=== PATIENT | female | born 1935 | race Caucasian/White ===

== ENCOUNTER 2016-09-21 13:08 | Inpatient (IN) ==
[2016-09-21] MEDS ORDERED: HYDROmorphone 2 MG/1 ML VIAL IV PRN (14:18)
[2016-09-21 14:51] LABS: Basophils % 0.1 % (0.0-0.8); Eosinophils % 0.1 % (0.00-10.9); Hematocrit 41.9 VOL% (35.7-47.0); Hemoglobin 13.8 GM/DL (12.0-16.0); Immature Granulocytes % 0.7 %; Immature Granulocytes Absolute 0.12 #; Lymphocytes % 11.2 % (21.3-54.2); Mean Corpuscular HGB Conc 32.9 GM/DL (32-36); Mean Corpuscular Hemoglobin 32 PG (27-34); Mean Corpuscular Volume 96.8 FL (87-102); Mean Platelet Volume 10.1 FL (9.6-12.0); Monocytes # 1.8 10*3/uL (0.11-0.8); Monocytes % 9.9 % (1.7-12.7); Platelet Count 240 T/CUMM (130-400); Red Blood Count 4.33 MC/CUMM (3.8-5.5); Red Cell Distribution Width 15.1 % (9.3-17.3)
--- NOTE | 2016-09-21 15:10 | Hospitalist History & Physical ---
Assessment and Plan - Time spent with patient Time spent with patient: Greater than 30 minutes (1) Abdominal pain Status: Acute Assessment and plan: Viral gastroenteritis vs Ischemic colitis Admit to hospitalist services. Start IV fluids. Draw labs. CT abdomen/pelvis. Start IV antibiotics. Pain medications PRN for pain management. Continue home medications.Occult blood; WBC stool; Culture stool; Cdiff. Current Visit: Yes Qualifiers: Abdominal location: upper abdomen, unspecified Qualified Code(s): R10.10 - Upper abdominal pain, unspecified (2) Nausea & vomiting Status: Acute Assessment and plan: Admit. Start IV fluids and antibiotics. CT abdomen/pelvis. Pepcid. PRN nausea medications. Current Visit: Yes History of Present Illness Chief complaint: abdominal pain History of present illness: Ms. Mcfarlane is a very pleasant 81 year old white female presented to [facility] for direct admit to room 225 from Angelica Gallegos [employer] office. Patient presented to Angelica Gallegos's office today for c/o nausea, vomiting and diarrhea since Wednesday around 2 p.m. Patient denies ever having this abdominal pain and complaint before. She states that she has not been able to keep anything down since Wednesday but today does seem a little better but still very nauseated or "quizzy" feeling. She denies fever, chills. She denies any blood in vomiting and no blood in stool. Patient medical history: hypertension, AFib , stroke (no deficits except a change in her voice). 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 Family History: Mother: Hypertension; Father: hypertension; Father: cancer (brain). Social history: smoking: none; alcohol: none; illicit drugs: none. Allergic to PCN, codiene. (?BP medication she wasnt sure) Patient lives at home alone. Ambulates at home without any assistance but uses a cane occasionally when not at her home. Primary Care physician: Angelica Gallegos NP Cafeteria Helper: Natalie After discussing patient with Angelica Gallegos NP and Dr Claros, Hospitalist, it was in agreement to direct admit patient for further evaluation. Patient did not bring home medications with her but she will give the list to the nurses on the floor for entry into the system. Code Status: Full Code. Home Medications Medication Instructions Recorded Confirmed Type Allopurinol 300 mg PO BID 11/10/15 11/10/15 History Clopidogrel [Plavix] 75 mg PO DAILY 11/10/15 11/10/15 History Furosemide Tab [Lasix Tab] 40 mg PO BID DIURETIC 11/10/15 11/10/15 History Potassium Chloride 20 meq PO BID 11/10/15 11/10/15 History Spironolactone 25 mg PO DAILY 11/10/15 11/10/15 History raNITIdine HCl [Zantac] 300 mg PO DAILY 11/10/15 11/10/15 History Allergies Allergy/AdvReac Type Severity Reaction Status Date / Time codeine Allergy RASH Verified 11/10/15 10:56 Penicillins Allergy RASH Verified 11/10/15 10:56 Sulfa (Sulfonamide Allergy RASH Verified 11/10/15 10:56 Antibiotics) IV DYE Allergy ANAPHYLAXIS Uncoded 11/10/15 10:56 MULTIPLE ? BP MEDS Allergy Redness of Uncoded 11/10/15 10:56 Skin Medical,Surgical,& Family Hx - Medical History Cardio: History of: Cardiac Dysrhythmia (AFib on Plavix), Cerebrovascular Disease, Hypertension Neurology: History of: Cerebrovascular Accident (voice change (was unable to talk briefly after stroke) ) - Social History Smoking Status: Never smoker Review of systems: ROS completed and pertinent positives and negatives in HPI. Exam - Constitutional General appearance: over weight - Head Head exam: Present: normal inspection, normocephalic - Eye Eye exam: Present: EOMI Pupils: Present: LUPIS - Neck Neck exam: Present: normal inspection - Respiratory Respiratory exam: Present: clear to auscultation bilaterally - GI/Abdominal GI/Abdominal exam: Present: distended, hypoactive bowel sounds, tenderness ( very tender all over but more upper abdominal region ), soft - Extremities Exam Extremities exam: Present: normal inspection, full ROM. Absent: edema - Neurological Exam Neurological exam: Present: alert, oriented X3 - Psychiatric Psychiatric exam: Present: normal affect, normal mood - Skin Skin exam: Present: normal color, warm, dry Results - Labs CBC & BMP: 09/21/16 14:35 Lab Results: I have reviewed the past 24 hour labs - Diagnostic Findings Procedure: CT Abdomen and Pelvis: pending (ordered: patient is drinking contrast )
[2016-09-21 15:20] LABS: Magnesium 2.4 MG/DL (1.8-2.4); Osmolality,Calculated 266.5 MOS/KG (273-304); Potassium 4.2 MMOL/L (3.5-5.1); VLDL CHOLESTEROL 31.8 MG/DL
[2016-09-21 15:21] LABS: Risk Ratio 4.38
[2016-09-21] MEDS: metroNIDAZOLE INJ 500 MG in PREMIX 1 EACH IV SCH ×2 (15:30→23:28)
[2016-09-21] MEDS: SODIUM CHLORIDE 0.9% 1,000 ML IV SCH (15:31)
[2016-09-21 15:50] LABS: Apearance,Urine CLOUDY (Clear); Bilirubin,Urine Negative (Negative); Blood, Urine Small mg/dL (Negative); Glucose,Urine (UA) Negative (Negative); Ketones,Urine Negative (Negative); Mucus,Urine Occasional /LPF (Occasional); Nitrite,Urine Negative (Negative); Protein,Urine 100 MG/DL; RBC,Urine 9 /HPF (0-4); Squamous Epithelial Cell,Urine Moderate /HPF (0-10); Urine Specific Gravity 1.019 (1.001-1.035); Urine Urobilinogen < 2.0 EU/DL (0.2-1.0); WBC,Urine 73 /HPF (0-6)
[2016-09-21 15:51] LABS: Urine Color Yellow (Yellow)
[2016-09-21] MEDS ORDERED: LEVOFLOXACIN INJ 500 MG in PREMIX 1 EACH IV SCH (16:00)
--- NOTE | 2016-09-21 17:28 | CT Report ---
CT of the abdomen and pelvis without intravenous contrast. Oral contrast was administered. Axial images were obtained with sagittal and coronal reconstructions. No previous study. Indication: Generalized abdominal pain. The heart is mildly enlarged. There is coronary artery calcification. There is no pericardial or pleural effusion. There are areas of scarring and interstitial fibrosis within the lung bases. There is a medium-sized hiatal hernia. There is no free air noted within the peritoneal cavity. There is a small amount of free fluid around the liver. There is fatty infiltration of the liver. The gallbladder is distended and stranding densities are noted surrounding it. There is wall thickening noted. No calcific stones are seen within it. There is no intrahepatic or extrahepatic biliary ductal dilatation. The sanders of the duodenum show indistinctness, adjacent to the gallbladder. There is also inflammation noted adjacent to the head of the pancreas, probably secondary to the gallbladder pathology. The pancreas is not enlarged. The pancreatic duct is not dilated. There is no splenic enlargement. There is no adrenal enlargement. There is no right kidney. The left kidney is normal in size without hydronephrosis or focal lesion identified. There is heavy calcific plaque present within a normal caliber abdominal aorta. There is an umbilical hernia which contains only fat. The loops of small intestine are not dilated. The terminal ileum presents a normal appearance. The appendix has been removed. The colon is not dilated. There are diverticuli present within the descending colon. At the junction of the descending and sigmoid colon, there is wall thickening and adjacent fluid. There is mild free fluid in the pelvis and fluid along the right paracolic gutter. There is severe lordosis of the lumbar spine. There is a prominent grade 1 anterolisthesis of L5 on S1, with a left unilateral pars defect identified. Degenerative changes are noted throughout the lumbar levels. Impression: 1. Distended gallbladder with wall thickening and surrounding inflammation consistent with cholecystitis. 2. Findings at the junction of the sigmoid and descending colon, consistent with diverticulitis. 3. Small amount of free fluid in the abdomen, around the liver, and in the right paracolic gutter and pelvis. The findings were discussed with the patient's nurse on the floor. The CT exam was performed using one or more of the following dose reduction techniques: Automated exposure control, adjustment of the mA and/or kV according to patient size, or use of iterative reconstruction technique. PROCEDURE INTERPRETED AT [facility] DEPARTMENT OF RADIOLOGY Final Report Signed by: Dr. Jaimie Ward
[2016-09-21] MEDS: FAMOTIDINE 20 MG/2 ML VIAL IV SCH (20:34)
[2016-09-22] MEDS: ACETAMINOPHEN 325 MG TABLET PO PRN ×3 (00:58→22:21)
[2016-09-22] MEDS: SODIUM CHLORIDE 0.9% 1,000 ML IV SCH ×3 (03:52→22:11)
[2016-09-22] MEDS: metroNIDAZOLE INJ 500 MG in PREMIX 1 EACH IV SCH ×2 (06:09→16:40)
[2016-09-22 06:44] LABS: Basophils % 0.2 % (0.0-0.8); Eosinophils # 0.1 10*3/uL (0.0-0.87); Eosinophils % 0.6 % (0.00-10.9); Hematocrit 35.1 VOL% (35.7-47.0); Hemoglobin 11.7 GM/DL (12.0-16.0); Immature Granulocytes % 0.5 %; Immature Granulocytes Absolute 0.06 #; Lymphocytes # 1.8 10*3/uL (1.4-4.0); Lymphocytes % 14.6 % (21.3-54.2); Mean Corpuscular HGB Conc 33.3 GM/DL (32-36); Mean Corpuscular Hemoglobin 32 PG (27-34); Mean Corpuscular Volume 96.2 FL (87-102); Mean Platelet Volume 10.2 FL (9.6-12.0); Monocytes # 1.3 10*3/uL (0.11-0.8); Monocytes % 10.3 % (1.7-12.7); Neutrophils # 9.3 10*3/uL (1.4-7.4); Neutrophils % 73.8 % (38.7-73.9); Platelet Count 174 T/CUMM (130-400); Red Blood Count 3.65 MC/CUMM (3.8-5.5); White Blood Count 12.5 T/CUMM (4-12)
[2016-09-22 07:16] LABS: Calcium 8.4 MG/DL (8.5-10.1); Magnesium 2.2 MG/DL (1.8-2.4); Osmolality,Calculated 275.8 MOS/KG (273-304); Potassium 4.3 MMOL/L (3.5-5.1)
[2016-09-22] MEDS: FAMOTIDINE 20 MG/2 ML VIAL IV SCH ×2 (08:38→22:11)
[2016-09-22] MEDS: CLOPIDOGREL 75 MG TABLET PO SCH ×2 (08:38→11:18)
--- NOTE | 2016-09-22 10:52 | Hospitalist Progress Note ---
Assessment and Plan (1) Abdominal pain Status: Acute Assessment and plan: CT A/P with possibility of cholecystitis and or diverticulitis. Patient reports a history of gallbladder issues, her current pain pattern is not consistent with the origin being cholecystitis. Pain and leukocytosis are improving Continue abx Current Visit: Yes Qualifiers: Abdominal location: upper abdomen, unspecified Qualified Code(s): R10.10 - Upper abdominal pain, unspecified (2) Nausea & vomiting Status: Resolved Current Visit: Yes Hospitalist: Subjective Interval history: No acute events overnight. Still with abdominal pain which is located over entire abdomen. It is better today. She denies N/V. Does report some mild diarrhea. Exam - Constitutional Vitals: Period Temp Pulse Resp BP Sys/Hunter Pulse Ox Last 24 Hr 96.4 F-98.5 F 51-59 20-21 111-128/61-74 93-95 General appearance: over weight - Head Head exam: Present: normocephalic, atraumatic - Eye Eye exam: Present: EOMI Pupils: Present: LUPIS - ENT ENT exam: Present: normal exam - Neck Neck exam: Present: normal inspection - Respiratory Respiratory exam: Present: clear to auscultation bilaterally. Absent: wheezes - Cardiovascular Cardiovascular exam: Present: regular rate and rhythm - GI/Abdominal GI/Abdominal exam: Present: normal bowel sounds, tenderness, soft. Absent: rebound - Extremities Exam Extremities exam: Present: normal inspection - Back Exam Back exam: Present: normal inspection - Neurological Exam Neurological exam: Present: alert, oriented X3 - Psychiatric Psychiatric exam: Present: normal affect, normal mood - Skin Skin exam: Present: warm, intact Results - Labs CBC & BMP: 09/22/16 05:48 09/22/16 05:49
[2016-09-22] MEDS ORDERED: LEVOFLOXACIN INJ 750 MG in PREMIX 1 EACH IV SCH (21:00)
[2016-09-22] MEDS: ALLOPURINOL 300 MG TABLET PO SCH (22:12)
[2016-09-23] MEDS: metroNIDAZOLE INJ 500 MG in PREMIX 1 EACH IV SCH ×3 (00:37→16:24)
[2016-09-23 06:35] LABS: Basophils % 0.2 % (0.0-0.8); Eosinophils # 0.1 10*3/uL (0.0-0.87); Hematocrit 34.4 VOL% (35.7-47.0); Hemoglobin 11.4 GM/DL (12.0-16.0); Immature Granulocytes % 0.7 %; Immature Granulocytes Absolute 0.07 #; Lymphocytes # 1.6 10*3/uL (1.4-4.0); Lymphocytes % 15.5 % (21.3-54.2); Mean Corpuscular HGB Conc 33.1 GM/DL (32-36); Mean Corpuscular Hemoglobin 32 PG (27-34); Mean Corpuscular Volume 96.4 FL (87-102); Mean Platelet Volume 10.2 FL (9.6-12.0); Monocytes % 9.4 % (1.7-12.7); Neutrophils # 7.7 10*3/uL (1.4-7.4); Neutrophils % 73.2 % (38.7-73.9); Platelet Count 190 T/CUMM (130-400); Red Blood Count 3.57 MC/CUMM (3.8-5.5); Red Cell Distribution Width 14.7 % (9.3-17.3); White Blood Count 10.5 T/CUMM (4-12)
[2016-09-23 07:08] LABS: Calcium 8.5 MG/DL (8.5-10.1); Magnesium 2.3 MG/DL (1.8-2.4); Osmolality,Calculated 278.5 MOS/KG (273-304); Potassium 4.2 MMOL/L (3.5-5.1)
[2016-09-23] MEDS: SODIUM CHLORIDE 0.9% 1,000 ML IV SCH ×2 (08:00→17:12)
[2016-09-23] MEDS: CLOPIDOGREL 75 MG TABLET PO SCH (09:37)
[2016-09-23] MEDS: ALLOPURINOL 300 MG TABLET PO SCH ×2 (09:37→22:49)
[2016-09-23] MEDS: ACETAMINOPHEN 325 MG TABLET PO PRN (09:38)
[2016-09-23] MEDS: FAMOTIDINE 20 MG/2 ML VIAL IV SCH ×2 (09:41→22:50)
--- NOTE | 2016-09-23 11:33 | Hospitalist Progress Note ---
Assessment and Plan (1) Abdominal pain Status: Acute Assessment and plan: CT A/P with possibility of cholecystitis and or diverticulitis. Patient reports a history of gallbladder issues, her current pain pattern is not consistent with the origin being cholecystitis. Pain and leukocytosis are improving Continue abx Still with abdominal pain and diarrhea, although she does report feeling better Will consult GI to evaluate Current Visit: Yes Qualifiers: Abdominal location: upper abdomen, unspecified Qualified Code(s): R10.10 - Upper abdominal pain, unspecified (2) Nausea & vomiting Status: Resolved Current Visit: Yes Hospitalist: Subjective Interval history: No acute events overnight. She reports that she feels better. She still complains of all over abdominal pain, also still with diarrhea. Exam - Constitutional Vitals: Period Temp Pulse Resp BP Sys/Hunter Pulse Ox Last 24 Hr 96.6 F-97.9 F 48-65 18-20 117-148/66-80 93-98 General appearance: over weight - Head Head exam: Present: normocephalic, atraumatic - Eye Eye exam: Present: EOMI Pupils: Present: LUPIS - ENT ENT exam: Present: normal exam - Neck Neck exam: Present: normal inspection - Respiratory Respiratory exam: Present: clear to auscultation bilaterally. Absent: rhonchi, wheezes - Cardiovascular Cardiovascular exam: Present: regular rate and rhythm - GI/Abdominal GI/Abdominal exam: Present: normal bowel sounds, soft. Absent: tenderness, rebound - Extremities Exam Extremities exam: Present: normal inspection - Back Exam Back exam: Present: normal inspection - Neurological Exam Neurological exam: Present: alert, oriented X3 - Psychiatric Psychiatric exam: Present: normal affect, normal mood - Skin Skin exam: Present: warm, intact Results - Labs CBC & BMP: 09/23/16 05:21 09/23/16 05:22
--- NOTE | 2016-09-23 22:07 | Gastrointestinal Consult Note ---
Assessment and Plan (1) Diverticulitis of sigmoid colon Status: Acute Assessment and plan: This is the main reason for the patient's hospitalization with a white blood cell count of 18,000 now down to 10.5 K after treatment with Levaquin and metronidazole. She will need to be transitioned to oral antibiotics and then likely could be discharged potentially tomorrow if she is tolerating these. We will continue to follow white blood cell count until she is discharged. The patient does have a change in her colon in the sigmoid descending region that we need to rule out cancer in approximately a month afte the colon has had a chance to heal from its current infection. She has never had a colorectal screening up to this point in this 31 years overdue. She appears to be healthy enough to be able tolerate surgery if one was required as a result of the above evaluation. Will arrange for this for [address] if the patient is discharged. Current Visit: Yes (2) Chronic cholecystitis Status: Acute Assessment and plan: Patient states that she has had gallstones for the last 40 years and has never had her gallbladder taken out. It is clear that she has some chronic inflammation no as she is tender in the right upper quadrant with palpation and CT scanning shows stranding around the gallbladder with gallbladder wall thickening. This is essentially tantamount to a chronic cholecystitis and may be a cause for future episodes of abdominal pain particularly at the center on the right upper quadrant. If she has further problems as an outpatient will likely order a HIDA scan to see that she has a low ejection fraction and send her to see surgery for cholecystectomy. Current Visit: Yes (3) Abnormal CT scan, gastrointestinal tract Status: Acute Assessment and plan: This finding refers to the diverticulitis and chronic cholecystitis previously noted findings. Current Visit: Yes (4) Leukocytosis Status: Acute Assessment and plan: The patient does have elevation of white blood cell count previously at 18,000 while this could certainly be due to the diverticulitis this may have also been secondary to the chronic cholecystitis less likely and or the urinary tract infection with about 70 white blood cells per high-power field. Patient also states that she has had a history of kidney stones and is status post right kidney removal because of the stones in the past. She may be predisposed to urinary tract infections as a result. It is likely that levofloxacin will treat underlying kidney infection as well. I do not see a urine culture but if this occurs again in the future would consider getting this. Current Visit: Yes History of Present Illness History of present illness: Ms. Mcfarlane is a 81 year old female who was sent over from Angelica Gallegos's office over at [facility] on 09/21/16 for onset of 10 out of 10 abdominal pain mostly involving her left lower abdomen but also producing some slight pain in the right lower abdomen/periumbilical region, as well as about 4-5 bowel movements. Patient states that the pain was similar to a dull ache but very intense. The patient has had a history of gallstones in the past some 40 years ago as well as kidney stones in the past perhaps explaining why she has the elevation in her urinary tract white blood cells with 70 per high-power field on recent UA. Patient also had fat stranding in the right upper quadrant consistent with cholecystitis and does have some pain on physical examination in this region. This was not the pain that brought her into the hospital however. CT of the abdomen shows fat stranding in the descending sigmoid region but also fat stranding around a thickened gallbladder wall in addition. Stool studies were done for C. difficile and were negative for fecal white blood cells and enteric pathogens at 48 hours indicating this was not an infectious colitis but more likely a diverticulitis. After treatment with a combination of levofloxacin and metronidazole her white blood cell count has improved down from 18,000-->10, 500. She is not having any fevers and chills at this time and states that her pain is down to about a 2 out of 10 in intensity posttreatment. She is feeling pretty good right now and could potentially leave tomorrow provided she can tolerate oral intake. She has done well with her solid lunch but did not have much of an appetite for supper. She states that she does not eat that much in the afternoons. She has never had a colonoscopy in her life and there is no family history of colon cancer or polyps. She will likely need a colonoscopy down the road upon discharge in about a month, to rule out cancer at the site of presumed diverticulitis. Home Medications Medication Instructions Recorded Confirmed Type Allopurinol 300 mg PO BID 11/10/15 09/21/16 History Clopidogrel [Plavix] 75 mg PO DAILY 11/10/15 09/21/16 History Furosemide Tab [Lasix Tab] 40 mg PO BID DIURETIC 11/10/15 09/21/16 History Potassium Chloride 20 meq PO BID 11/10/15 09/21/16 History Spironolactone 25 mg PO DAILY 11/10/15 09/21/16 History raNITIdine HCl [Zantac] 300 mg PO DAILY 11/10/15 09/21/16 History Allergies Allergy/AdvReac Type Severity Reaction Status Date / Time codeine Allergy RASH Verified 11/10/15 10:56 Penicillins Allergy RASH Verified 11/10/15 10:56 Sulfa (Sulfonamide Allergy RASH Verified 11/10/15 10:56 Antibiotics) IV DYE Allergy ANAPHYLAXIS Uncoded 11/10/15 10:56 MULTIPLE ? BP MEDS Allergy Redness of Uncoded 11/10/15 10:56 Skin Medical,Surgical,& Family Hx - Medical History Cardio: History of: Cardiac Dysrhythmia (AFib on Plavix), Cerebrovascular Disease, Hypertension Neurology: History of: Cerebrovascular Accident (voice change (was unable to talk briefly after stroke) ) Genitourinary: History of: Kidney Stones - Surgical History Thoracic Surgeries: Surgical HX of;: Kidney (Renal Surgery), Nephrectomy (1968) Abdominal Surgeries: Surgical HX of: Appendectomy - Social History Smoking Status: Never smoker Frequency of Alcohol Use: None Type of Drug Use: None Review of systems: Constitutional: She admits to some fever, chills, and is positive for recent nausea, and vomiting Eyes: Denies dry eyes, and scleral icterus HENT: Denies headaches Cardiovascular: Denies acute chest pain and claudication Respiratory: Denies shortness of breath, wheezing, and difficulty breathing, denies cough Gastrointestinal: As noted in the HPI Genitourinary: Despite the elevated urinary white blood cell count she denies dysuria and hematuria Neurologic: Denies vision loss, and loss of sensation Musculoskeletal: She admits to some joint swelling, joint stiffness, and muscular weakness Psychiatric: Denies depression and tony symptoms Heme-Lymph: Denies easy bruising, lymph node enlargement or tenderness, night sweats, excessive bleeding Allergies-immunologic: Denies pruritus and rhinorrhea Exam - Constitutional Vitals: Period Temp Pulse Resp BP Sys/Hunter Pulse Ox Last 24 Hr 96.0 F-97.9 F 48-65 18-20 117-151/66-80 93-98 General appearance: no acute distress - Head Head exam: Present: normocephalic - Eye Eye exam: Present: EOMI Pupils: Present: LUPIS - ENT ENT exam: Present: normal exam - Respiratory Respiratory exam: Present: clear to auscultation bilaterally. Absent: rhonchi, stridor, wheezes - Cardiovascular Cardiovascular exam: Present: regular rate and rhythm - GI/Abdominal GI/Abdominal exam: Present: normal bowel sounds, tenderness (Patient does have some tenderness in the left lower abdomen but also in the right upper abdomen, given comparison of the 2 of these it seems like the latter is a worse on physical exam.), soft, other (Rectal exam showed good tone no external fissures or fistulas stool is present brown and guaiac negative). Absent: distended, guarding, rebound - Extremities Exam Extremities exam: Absent: edema - Neurological Exam Neurological exam: Present: alert, oriented X3 - Psychiatric Psychiatric exam: Present: normal affect, normal mood - Skin Skin exam: Present: warm Results - Labs CBC & BMP: 09/23/16 05:21 09/23/16 05:22
[2016-09-24] MEDS: metroNIDAZOLE INJ 500 MG in PREMIX 1 EACH IV SCH (00:44)
[2016-09-24] MEDS: ACETAMINOPHEN 325 MG TABLET PO PRN (00:44)
[2016-09-24] MEDS: SODIUM CHLORIDE 0.9% 1,000 ML IV SCH (00:44)
[2016-09-24] MEDS: ALLOPURINOL 300 MG TABLET PO SCH (08:46)
[2016-09-24] MEDS: CLOPIDOGREL 75 MG TABLET PO SCH (08:46)
[2016-09-24] MEDS ORDERED: LEVOFLOXACIN INJ 750 MG in PREMIX 1 EACH IV SCH (09:00)
[2016-09-24] MEDS ORDERED: LEVOFLOXACIN 500 MG TABLET PO SCH (09:00)
[2016-09-24] MEDS: FAMOTIDINE 20 MG/2 ML VIAL IV SCH (10:00)
--- NOTE | 2016-09-24 10:53 | Discharge Summary ---
<Vicky Rooneyda - Last Filed: 09/24/16 10:48> Hospital Course - Hospital Course Hospital Course: This is a very pleasant 81-year-old female that presented as a direct admission to [facility] from the internal medicine clinic. Patient has a medical history significant for: Gouty arthritis, hypertension, atrial fibrillation, cerebrovascular accident, and gastroesophageal reflux disease. The patient has a surgical history significant for appendectomy and right nephrectomy. The patient reported the onset of symptoms about 3 days prior to presentation. She reported that she had an onset of nausea,vomiting, and diarrhea at that time. In addition, the patient reported a decrease in appetite however denied any melena or hematochezia. The symptoms were prolonged and the patient decided to seek medical attention at her primary care physician office on the day of presentation. The patient was seen and assessed at the internal medicine clinic. The hospitalist group at [facility] was contacted regarding the direct admission of the patient for further evaluation. The patient was subsequently admitted to the hospitalist services as a direct admission for continuation of care. The patient was admitted. Intravenous fluid replacement, empiric antibiotics, protein pump inhibitors, and anti-emetics were initiated. Bowel rest with pain management was promoted at that time. The patient underwent CT abdomen and pelvis which noted a distended gallbladder with wall thickening and surrounding inflammation consistent with cholecystitis, findings at the junction of the sigmoid and descending colon were consistent with diverticulitis, and a small amount of free fluid was noted in the abdomen, around the liver, and in the right paracolic gutter and pelvis. Urinalysis was obtained which suggested urinary tract infection. A gastroenterology consultation was requested. The patient was evaluated; recommendations were made for possible HIDA scan in the outpatient setting if problems occur in the future. Patient has never had a colonoscopy so she will need one in a month once her current episode of diverticulitis resolves. Urine culture revealed no growth at 48 hours. Stool culture reported no enteric pathogens at 48 hours. The patient's condition gradually improved. Her vital signs are stable. She has not experienced any significant overnight events. The patient has been afebrile. Today, we feel that she is indeed appropriate for discharge to follow-up with her primary care physician and cotton stomper as indicated. Discharge Plan - Discharge Data Disposition: Disch To Home/Self Care - Discharge Medications New Levofloxacin Tab [Levaquin Tab] 500 mg PO DAILY #10 tablet metroNIDAZOLE TAB [Flagyl Cap/Tab] 500 mg PO Q8HR #20 tablet Continue Potassium Chloride 20 meq PO BID raNITIdine HCl [Zantac Tab] 300 mg PO DAILY Clopidogrel [Plavix] 75 mg PO DAILY Allopurinol 300 mg PO BID Discontinued Furosemide Tab [Lasix Tab] 40 mg PO BID DIURETIC Spironolactone 25 mg PO DAILY - Follow Up or Referral - Forms/Instructions Exam - Constitutional Vitals: Period Temp Pulse Resp BP Sys/Hunter Pulse Ox Last 24 Hr 96.0 F-97.9 F 48-73 18-20 110-151/64-84 95-97 Discharge Results Procedures and tests throughout hospitalization: Pending Orders 09/21/16 16:21 Occult Blood, Stool Routine Stool for WBCs Routine stool [C. Diff Toxins A & B] Routine DS: Provider Date of admission: 09/21/16 13:35 Primary care physician: Himanshu Navarro MD Attending physician on admission: Josse Claros MD Consults: 09/23/16 10:43 Consult to Physician [CONS] Routine Comment: abd pain, diarrhea, diverticulitis on ct Consulting Provider: Armani Hair Discharging clinician: Cielo Rooney CNP <Seth Kitchen - Last Filed: 09/24/16 11:36> Hospital Course - Time spent with patient Time with patient DS: Less than 30 minutes (28) Diagnosis - Discharge Diagnosis (1) Abdominal pain Status: Resolved (2) Nausea & vomiting Status: Resolved (3) Diverticulitis of sigmoid colon Status: Resolved (4) Chronic cholecystitis Status: Chronic (5) Leukocytosis Status: Resolved Discharge Plan - Discharge Data Condition at Discharge: Stable Discharge Diet: high fiber diet Activity: increase activity as tolerated Hygiene: no restrictions Weight Bearing at Discharge: weight bear as tolerated Contact your physician if you experience:: fever over 101, Nausea/Vomiting, pain uncontrolled by pain medications Exam - Constitutional General appearance: over weight - Head Head exam: Present: normocephalic, atraumatic - Eye Eye exam: Present: EOMI Pupils: Present: LUPIS - ENT ENT exam: Present: normal exam - Neck Neck exam: Present: normal inspection - Respiratory Respiratory exam: Present: clear to auscultation bilaterally. Absent: rhonchi, wheezes - Cardiovascular Cardiovascular exam: Present: regular rate and rhythm - GI/Abdominal GI/Abdominal exam: Present: normal bowel sounds, soft. Absent: tenderness, rebound - Extremities Exam Extremities exam: Present: normal inspection - Back Exam Back exam: Present: normal inspection - Neurological Exam Neurological exam: Present: alert, oriented X3 - Psychiatric Psychiatric exam: Present: normal affect, normal mood - Skin Skin exam: Present: warm, intact
[2016-09-24 12:08] VITALS: BP 146/84
[2016-09-24] MEDS ORDERED: metroNIDAZOLE 500 MG TABLET PO SCH (14:00)
== END 2016-09-24 14:35 | disposition home or self-care (01) | DRG 392 ==
LOC: SUATTDRO 13:35 → N.2E 13:35
PROVIDERS: ADMIT Internal Medicine; ATTEND Internal Medicine

== ENCOUNTER 2016-09-26 19:43 | Inpatient (IN) ==
[2016-09-26] MEDS ORDERED: MORPHINE 2 MG/1 ML SYRINGE IV STA (21:03)
[2016-09-26] MEDS ORDERED: ASPIRIN 325 MG TABLET PO STA (21:03)
[2016-09-26] MEDS ORDERED: ASPIRIN 325 MG TABLET ONE (21:35)
[2016-09-26] MEDS ORDERED: ONDANSETRON 4 MG/2 ML VIAL ONE (21:35)
[2016-09-26 21:36] LABS: Basophils % 0.2 % (0.0-0.8); Eosinophils # 0.2 10*3/uL (0.0-0.87); Eosinophils % 1.6 % (0.00-10.9); Hematocrit 35.2 VOL% (35.7-47.0); Hemoglobin 11.9 GM/DL (12.0-16.0); Immature Granulocytes % 0.9 %; Immature Granulocytes Absolute 0.09 #; Lymphocytes # 1.7 10*3/uL (1.4-4.0); Mean Corpuscular HGB Conc 33.8 GM/DL (32-36); Mean Corpuscular Hemoglobin 32 PG (27-34); Mean Corpuscular Volume 95.1 FL (87-102); Mean Platelet Volume 9.5 FL (9.6-12.0); Monocytes % 10.2 % (1.7-12.7); Neutrophils # 6.6 10*3/uL (1.4-7.4); Neutrophils % 69.1 % (38.7-73.9); Platelet Count 230 T/CUMM (130-400); Red Cell Distribution Width 14.8 % (9.3-17.3); White Blood Count 9.5 T/CUMM (4-12)
[2016-09-26 21:50] LABS: D-Dimer 3.7 MG/L FEU; INR 1.2; PT Patient Result 12.4 SECS; Partial Thromboplastin Time 30.5 SECS (0-40)
[2016-09-26 21:55] LABS: Calcium 9.7 MG/DL (8.5-10.1); Potassium 4.1 MMOL/L (3.5-5.1)
[2016-09-26] MEDS ORDERED: ONDANSETRON 4 MG/2 ML VIAL IV STA (22:50)
[2016-09-26] MEDS ORDERED: FUROSEMIDE 40 MG/4 ML VIAL IV STA (23:37)
[2016-09-27] MEDS ORDERED: FUROSEMIDE 100 MG/10 ML VIAL ONE (00:26)
--- NOTE | 2016-09-27 00:34 | Emergency Department Note ---
Ravi Edmonds Brittany, am scribing for, and in the presence of, Jaye Corado MD 21:08. Mickie Edmonds Leanne, MD, personally performed the services described in this documentation, ascribed by Jenny Rodrigues in my presence, and it is both accurate and complete . Arrival - Arrival Chief Complaint: Chest Pain Stated Complaint: CHEST PAINS ED Nursing Triage Note: Pt to triage with c/o chest pain that started this morning. Pt denies any sob and n/v. Pt does states the pain started on the right side and moved to the center of her chest and it feels like a sharp pains. Pt feet are noted to be swollen bilateral. Pt states she was discharged this past from the hospital. Mode of Arrival: Wheelchair Limitations: No Limitations Source: Patient, RN Notes Reviewed Time Seen by Provider: 09/26/16 20:27 - History of Present Illness HPI Narrative: Patient is a 81 y/o white female presenting to the ED with c/o chest pain which onset this morning at 0400. Patient reports that she was woken out of her sleep with this pain. She describes pain as sharp in quality, beginning in the right chest wall this morning but as the day progressed pain is now more in the mid- sternal chest. She has had some radiation of pain into the right shoulder. She denies any SOB, but does appear to be dyspneic on exam. Patient has has had some edema of bilateral lower extremities, but has not had any N/V or diaphoresis. Patient reports a history significant for superficial thrombosis to lower extremities but never DVT. She was recently DC' d from here on September 24 and states that she was instructed to discontinue taking Lasix. Patient states that she currently takes Plavix. Drapery Estimator is Dr. Estrada. Patient has no other complaint/pain. PMHx of HTN and CVA. Onset (ago): hour(s) (0400 this morning) Consistency: constant Severity: moderate Severity scale (1-10): 6 Quality: sharp Allergies/Adverse Reactions: Allergies Allergy/AdvReac Type Severity Reaction Status Date / Time codeine Allergy RASH Verified 09/26/16 19:56 Penicillins Allergy RASH Verified 09/26/16 19:56 Sulfa (Sulfonamide Allergy RASH Verified 09/26/16 19:56 Antibiotics) IV DYE Allergy ANAPHYLAXIS Uncoded 09/26/16 19:56 MULTIPLE ? BP MEDS Allergy Redness of Uncoded 09/26/16 19:56 Skin Home Medications: Home Medications Medication Instructions Recorded Confirmed Type Allopurinol 300 mg PO BID 11/10/15 09/26/16 History Clopidogrel [Plavix] 75 mg PO DAILY 11/10/15 09/26/16 History Potassium Chloride 20 meq PO BID 11/10/15 09/26/16 History raNITIdine HCl [Zantac Tab] 300 mg PO DAILY 11/10/15 09/26/16 History Levofloxacin Tab [Levaquin Tab] 500 mg PO DAILY #10 tablet 09/24/16 09/26/16 Rx metroNIDAZOLE TAB [Flagyl Cap/Tab] 500 mg PO Q8HR #20 tablet 09/24/16 09/26/16 Rx Review of System - Review of System 12 point system: reviewed and no additional remarkable complaints except as stated - Review of System Constitutional: Absent: chills, diaphoresis, fever Eyes: Absent: vision change Head/Ears/Nose/Throat: Absent: nasal drainage, sore throat Respiratory: Absent: respiratory distress Cardiovascular: Present: chest pain, edema Gastrointestinal: Absent: abdominal pain, nausea, vomiting, diarrhea, constipation Genitourinary female: Absent: dysuria, frequency, urgency Musculoskeletal: Present: arm pain. Absent: back pain, leg pain, neck pain Skin: Absent: rash Neurological: Absent: headache Psychiatric: Absent: anxiety, depression Medical,Surgical,& Family Hx - Medical History Cardio: History of: Cardiac Dysrhythmia (AFib on Plavix), Cerebrovascular Disease, Hypertension Neurology: History of: Cerebrovascular Accident (voice change (was unable to talk briefly after stroke) ) Genitourinary: History of: Kidney Stones - Surgical History Thoracic Surgeries: Surgical HX of;: Kidney (Renal Surgery), Nephrectomy (1968) Abdominal Surgeries: Surgical HX of: Appendectomy - Social History Smoking Status: Never smoker Frequency of Alcohol Use: None Type of Drug Use: None Exam Vital Signs: Vital Signs Temperature 98.4 F 09/26/16 19:51 Pulse Rate 56 L 09/26/16 19:51 Respiratory Rate 18 09/26/16 19:51 Blood Pressure 149/71 09/26/16 19:51 O2 Sat by Pulse Oximetry 94 L 09/26/16 19:51 - General General appearance: alert, in no apparent distress - Head Head exam: Present: atraumatic, normocephalic, normal inspection - Eye Eye exam: Present: normal appearance, PERRL, EOMI - ENT ENT exam: Present: normal exam, normal oropharynx - Neck Neck exam: Present: normal inspection, full ROM, trachea midline - Chest Chest inspection: Present: normal inspection, symmetric chest wall rise - Respiratory Respiratory exam: Present: normal lung sounds bilaterally, other (dyspneic ) - Cardiovascular Cardiovascular exam: Present: regular rate, normal rhythm, normal heart sounds - Abdominal Exam Abdominal exam: Present: soft, normal bowel sounds. Absent: tenderness - Extremities Exam Extremities exam: Present: pedal edema (+2 pitting edema bilaterally). Absent: normal inspection - Back Exam Back exam: Present: normal inspection - Neurological Exam Neurological exam: Present: alert, oriented X3, CN II-XII intact. Absent: motor sensory deficit - Psychiatric Psychiatric exam: Present: normal affect, normal mood - Skin Skin exam: Present: warm, dry Course Course Narrative: PE VS CHF. PT TAKEN OFF LASIX. BUT RECENTLY IN HOSPITAL FOR DIVERTICULITIS. SATS LOW IN 90S ON RA. CXR CONSISNTENT WITH CHF. LASIX GIVEN. WILL ADMIT FOR VQ SCAN AND DETERMINE IF PT NEEDS TO BE OFF LASIX THERAPY SINCE LAST D/C TOOK HER OFF OF IT. Results - Labs CBC & BMP: 09/26/16 21:29 09/26/16 21:29 Lab Results: I have reviewed the patients labs Labs: Laboratory Tests 09/26/16 09/26/16 09/26/16 21:29 21:29 21:29 WBC 9.5 RBC 3.70 L Hgb 11.9 L Hct 35.2 L Plt Count 230 D MPV 9.5 L Lymph % (Auto) 18.0 L Sherman # (Auto) 1.0 H Sodium 136 Potassium 4.1 Chloride 101 Carbon Dioxide 27 BUN 20 H Creatinine 1.30 H Glucose 101 Troponin I 0.022 Laboratory Tests 09/26/16 09/26/16 21:29 Unknown INR 1.2 PT Patient/Control Mix 12.4 D-Dimer, Quantitative 3.7 Circ Anticoag PTT 30.5 B-Natriuretic Peptide 181 H - EKG EKG results: interpreted by ERMD - Impressions nsr, rbbb, std IN v4-v6. Disposition Clinical Impression: Shortness of breath, Hypoxemia Case discussed with: patient Condition: Stable
[2016-09-27] MEDS ORDERED: MORPHINE 2 MG/1 ML SYRINGE IV PRN (00:45)
[2016-09-27] MEDS ORDERED: MAGNESIUM SULF RIDER 4 GM in PREMIX 1 EACH IV PRN (00:50)
[2016-09-27] MEDS ORDERED: MAGNESIUM SULF RIDER 2 GM in PREMIX 1 EACH IV PRN (00:50)
[2016-09-27] MEDS ORDERED: ALBUTEROL/IPRATROPIUM 3 ML NEB RESP TX PRN (00:52)
--- NOTE | 2016-09-27 01:10 | Hospitalist History & Physical ---
Assessment and Plan (1) Chest pain Status: Acute Current Visit: Yes (2) Shortness of breath Status: Acute Current Visit: Yes (3) Hypoxemia Status: Acute Assessment and plan: Patient needs to be admitted to our service. I will schedule her on Lasix. Her O2 sats improved on 2 L nasal cannula. She is not normally on O2. They were 88 on room air. Patient denies shortness of breath but appeared short of breath. I think it would be prudent to get a V/Q lung scan on patient in the morning. Going to give her full dose Lovenox. Since she sees Dr. martinez in clinical think it would be appropriate to have [facility] cardiology evaluate her as far as her home medications. Her Lasix and Spironolactone would not restarted upon recent discharge. The reason was not documented. Current Visit: Yes History of Present Illness Chief complaint: Chest pain History of present illness: Ms. Mcfarlane is a 81 year old female with past medical history significant for recent hospitalization for diverticulitis and cystitis returns back to the hospital [facility]. Patient also reports a history of hypertension and stroke. She says that she developed chest pain this morning. It was right sided and radiated to the left side. It was across her chest. She did take some Pepcid but there was no relief. When patient was discharged 2 days ago she had her Lasix and Spironolactone were held. She sees Dr. martinez is her maternal fetal physician. She denies any heart failure. But does report that she has had recent weight gain of approximately 16 pounds over the past couple weeks. Her BNP is elevated only at 181. But her O2 saturations on room air were 88%. In the workup done in the ER. She had a elevated d-dimer. Secondary to her having a significant allergy to IV dye she did not get a CT scan With contrast. I was consulted for admission. Her O2 sats improved fairly quickly on 2 L nasal cannula. Home Medications Medication Instructions Recorded Confirmed Type Allopurinol 300 mg PO BID 11/10/15 09/26/16 History Clopidogrel [Plavix] 75 mg PO DAILY 11/10/15 09/26/16 History Potassium Chloride 20 meq PO BID 11/10/15 09/26/16 History raNITIdine HCl [Zantac Tab] 300 mg PO DAILY 11/10/15 09/26/16 History Levofloxacin Tab [Levaquin Tab] 500 mg PO DAILY #10 tablet 09/24/16 09/26/16 Rx metroNIDAZOLE TAB [Flagyl Cap/Tab] 500 mg PO Q8HR #20 tablet 09/24/16 09/26/16 Rx Allergies Allergy/AdvReac Type Severity Reaction Status Date / Time codeine Allergy RASH Verified 09/26/16 19:56 Penicillins Allergy RASH Verified 09/26/16 19:56 Sulfa (Sulfonamide Allergy RASH Verified 09/26/16 19:56 Antibiotics) IV DYE Allergy ANAPHYLAXIS Uncoded 09/26/16 19:56 MULTIPLE ? BP MEDS Allergy Redness of Uncoded 09/26/16 19:56 Skin Medical,Surgical,& Family Hx - Medical History Cardio: History of: Cardiac Dysrhythmia (AFib on Plavix), Cerebrovascular Disease, Hypertension Neurology: History of: Cerebrovascular Accident (voice change (was unable to talk briefly after stroke) ) Genitourinary: History of: Kidney Stones - Surgical History Thoracic Surgeries: Surgical HX of;: Kidney (Renal Surgery), Nephrectomy (1968) Abdominal Surgeries: Surgical HX of: Appendectomy - Family History Family History: Reports;: Family Cancer, Family Diabetes, Additional Family History (COPD) - Social History Smoking Status: Never smoker Frequency of Alcohol Use: None Type of Drug Use: None 12 point system: reviewed and no additional remarkable complaints except as stated Exam - Constitutional Vitals: Period Temp Pulse Resp BP Sys/Hunter Pulse Ox Last 24 Hr 98.4 F 56 18 149/71 94 General appearance: normal weight - Head Head exam: Present: normal inspection - Eye Eye exam: Present: EOMI Pupils: Present: LUPIS - ENT ENT exam: Present: normal exam - Neck Neck exam: Present: normal inspection - Respiratory Respiratory exam: Present: clear to auscultation bilaterally - Cardiovascular Cardiovascular exam: Present: bradycardia - GI/Abdominal GI/Abdominal exam: Present: normal bowel sounds - Extremities Exam Extremities exam: Present: edema - Back Exam Back exam: Present: normal inspection - Neurological Exam Neurological exam: Present: alert, oriented X3 - Psychiatric Psychiatric exam: Present: normal affect, normal mood - Skin Skin exam: Present: normal color, warm Results - Labs CBC & BMP: 09/26/16 21:29 09/26/16 21:29
[2016-09-27 02:07] LABS: Risk Ratio 5.63; VLDL CHOLESTEROL 38.6 MG/DL
[2016-09-27] MEDS: ENOXAPARIN 100 MG/ML SYRINGE SUBCUT SCH ×2 (03:52→18:21)
[2016-09-27 04:50] LABS: Basophils % 0.2 % (0.0-0.8); Eosinophils # 0.2 10*3/uL (0.0-0.87); Hematocrit 37.4 VOL% (35.7-47.0); Hemoglobin 12.4 GM/DL (12.0-16.0); Immature Granulocytes % 1.2 %; Lymphocytes % 22.6 % (21.3-54.2); Mean Corpuscular HGB Conc 33.2 GM/DL (32-36); Mean Corpuscular Hemoglobin 32 PG (27-34); Mean Corpuscular Volume 95.4 FL (87-102); Mean Platelet Volume 9.8 FL (9.6-12.0); Monocytes # 0.9 10*3/uL (0.11-0.8); Monocytes % 10.3 % (1.7-12.7); Neutrophils # 5.5 10*3/uL (1.4-7.4); Neutrophils % 63.7 % (38.7-73.9); Platelet Count 259 T/CUMM (130-400); Red Blood Count 3.92 MC/CUMM (3.8-5.5); Red Cell Distribution Width 14.8 % (9.3-17.3); White Blood Count 8.7 T/CUMM (4-12)
--- NOTE | 2016-09-27 05:03 | EKG Report ---
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
[2016-09-27 05:16] LABS: Calcium 10.5 MG/DL (8.5-10.1); Osmolality,Calculated 277.7 MOS/KG (273-304); Potassium 4.7 MMOL/L (3.5-5.1)
[2016-09-27] MEDS: metroNIDAZOLE 500 MG TABLET PO SCH ×3 (06:30→21:13)
--- NOTE | 2016-09-27 07:24 | EKG Report ---
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
[2016-09-27] MEDS: POTASSIUM CHLORIDE 20 MEQ TABLET PO SCH ×3 (08:33→21:13)
--- NOTE | 2016-09-27 08:53 | XRay Report ---
Portable chest Date: 09/26/2016 Clinical history: Chest pain Comparison: 11/10/2015 Technique: Portable AP sitting chest Findings: The heart is enlarged with uncoiling of the aorta. Diffuse parenchymal findings are noted in the lower lung zones. Stable mediastinum and osseous structures. Impression: Cardiomegaly with findings which can be seen with mild CHF/pneumonitis. PROCEDURE INTERPRETED AT [facility] DEPARTMENT OF RADIOLOGY Final Report Signed by: Dr. Angelica Syed
--- NOTE | 2016-09-27 09:44 | Nuclear Medicine Report ---
Exam: Lung scan ventilation/perfusion Date: 09/27/2016 Comparison: Chest x-ray 09/26/2016 Reason: Elevated d-dimer with low O2 sats Technique: 40 mCi of technetium 99m DTPA aerosolized was inhaled with injection of 5 mCi of technetium 99m MAA . 6 view Ventilation and perfusion images of both lungs were acquired. Findings: Multiple ventilation defects are identified. Multiple bilateral ventilation defects are identified. The perfusion defects are less prominent than the ventilation defects. No unmatched defects are identified. Impression: Low probability lung scan. PROCEDURE INTERPRETED AT [facility] DEPARTMENT OF RADIOLOGY Final Report Signed by: Dr. Angelica Syed
[2016-09-27] MEDS: FUROSEMIDE 40 MG/4 ML VIAL IV SCH ×2 (09:56→15:57)
[2016-09-27] MEDS: LEVOFLOXACIN 500 MG TABLET PO SCH (09:57)
[2016-09-27] MEDS: FAMOTIDINE 20 MG TABLET PO SCH (09:57)
[2016-09-27] MEDS: CLOPIDOGREL 75 MG TABLET PO SCH (09:57)
[2016-09-27] MEDS: ASPIRIN CHEW 81 MG TABLET PO SCH (09:57)
[2016-09-27] MEDS: ALLOPURINOL 300 MG TABLET PO SCH ×2 (09:57→21:13)
--- NOTE | 2016-09-27 09:59 | Cardiology Consult Note ---
Assessment and Plan (1) Chest wall pain Status: Acute Assessment and plan: Her pain is noncardiac and certainly musculoskeletal in nature. Current Visit: Yes (2) Bradycardia Status: Acute Assessment and plan: This was sinus bradycardia. His one episode. Will monitor this. She is on medications to cause this. Current Visit: Yes (3) Nonsustained ventricular tachycardia Status: Acute Assessment and plan: She has one episode of nonsustained ventricular tachycardia that was asymptomatic. We will check an echocardiogram as well as magnesium level. Current Visit: Yes History of Present Illness - Data of Consult Patient: known to practice within the last 3 years Consult date: 09/27/16 Requesting Physician: Ruben Reid - Consult Narrative Reason for consult: Chest pain History of present illness: Ms. Mcfarlane is a 81 year old female who is been followed by Dr. Estrada previously. Patient has followed with him for having some vascular disease in the form of CVA and carotid disease as well as hypertension. She has had chest pain described as atypical in the past with normal cardiac perfusion study 2 years ago. She generally has done fairly well. The patient about 4 AM yesterday morning states that she had development of right sided chest pain that radiated to the mid chest around the chest wall. Pain persisted. She was seen in emergency room here without any acute EKG changes and cardiac enzymes have been unremarkable. The pain is exacerbated by deep breath motion or trying to lift herself up out of a chair without using her arm. She lays on her left side exacerbates the pain. She has not had this pain previously. She denies any trauma to her chest. Since admission she has had one episode of bradycardia and one episode of nonsustained ventricular tachycardia that was 14 beats. This is completely asymptomatic. Her potassium was okay but I do not see a magnesium but she is on magnesium protocol which I think she is standard orders. We will need to check a magnesium. We will also check echocardiogram. Need to continue to monitor her heart rhythm rates. I do not think from a chest pain standpoint we need to carry out further evaluation at this time. She was recently in the hospital with GI complaints and abdominal pain. CC: Josse Claros MD - Home Medications and Allergies Home Medications: Home Medications Medication Instructions Recorded Confirmed Type Allopurinol 300 mg PO BID 11/10/15 09/26/16 History Clopidogrel [Plavix] 75 mg PO DAILY 11/10/15 09/26/16 History Potassium Chloride 20 meq PO BID 11/10/15 09/26/16 History raNITIdine HCl [Zantac Tab] 300 mg PO DAILY 11/10/15 09/26/16 History Levofloxacin Tab [Levaquin Tab] 500 mg PO DAILY #10 tablet 09/24/16 09/26/16 Rx metroNIDAZOLE TAB [Flagyl Cap/Tab] 500 mg PO Q8HR #20 tablet 09/24/16 09/26/16 Rx Allergies/Adverse Reactions: Allergies Allergy/AdvReac Type Severity Reaction Status Date / Time codeine Allergy RASH Verified 09/26/16 19:56 Penicillins Allergy HIVES Verified 09/27/16 02:26 Sulfa (Sulfonamide Allergy RASH Verified 09/26/16 19:56 Antibiotics) IV DYE Allergy ANAPHYLAXIS Uncoded 09/26/16 19:56 MULTIPLE ? BP MEDS Allergy Redness of Uncoded 09/26/16 19:56 Skin Review of systems: Constitutional: Denies anorexia, chills, fatigue, fever, frequent falls, night sweats, weight gain, weight loss Eyes: Denies visual changes or loss of vision Ears: Denies decreased hearing, vertigo Nose, mouth and throat: Denies dysphagia, epistaxis, headaches, neck pain Neck: Denies thyromegaly or masses. No stiffness. Cardiovascular: as per HPI Respiratory: Denies cough, dyspnea, hemoptysis, dyspnea on exertion, wheezing, snoring Gastrointestinal: Denies abdominal pain, constipation, dyspepsia, dysphagia, hematemesis, hematochezia, melena, nausea, vomiting Genitourinary: Denies dysuria, hematuria, nocturia Musculoskeletal: Denies arthralgias, joint swelling, muscle weakness, myalgias Neurological: denies abnormal gait, abnormal speech, confusion, convulsions, frequent falls, headaches, memory loss, syncope Psychiatric: Denies anxiety, confusion, depression Endocrine: Denies cold intolerance, fatigue, heat intolerance Hematologic/Lymphatic: Denies easy bleeding, easy bruising Dermatologic: Denies Rash, itching, shingles Medical,Surgical,& Family Hx - Medical History Cardio: History of: Cerebrovascular Disease, Hypertension Neurology: History of: Cerebrovascular Accident (voice change (was unable to talk briefly after stroke) ) Rheumatology: History of;: Gout Genitourinary: History of: Kidney Stones - Surgical History Cardiac Surgeries: Patient Denies: Femoral-Popliteal Bypass Graft, Cardiac Catheterization, Cardiac Surgery, Carotid Endarterectomy, Internal Defibrillator, Vascular Access Devices Thoracic Surgeries: Surgical HX of;: Kidney (Renal Surgery), Nephrectomy (1969) Neurologic Surgeries: Patient denies: Neurologic Surgery HEENT Surgeries: Patient denies: Carotid Endarterectomy Abdominal Surgeries: Surgical HX of: Appendectomy Patient denies: Splenectomy Reproductive Surgeries: Patient denies;: Gynecologic Surgery - Family History Family History: Reports;: Family Cancer, Family Diabetes, Additional Family History (COPD) - Social History Smoking Status: Never smoker Frequency of Alcohol Use: None Type of Drug Use: None Physical Examination Vital Signs Temp Pulse Resp BP Pulse Ox 98.4 F 56 L 18 149/71 94 L 09/26/16 19:51 09/26/16 19:51 09/26/16 19:51 09/26/16 19:51 09/26/16 19:51 Exam: General appearance: Overweight, no acute distress, sitting on the side of the bed. Head exam: normal inspection, atraumatic Eye exam: Pupils are equal and reactive. EOMI. There is no trauma. Ear exam: Anatomically normal. Normal auditory acuity to conversation. Oral exam: No significant oral lesions. Neck exam: normal inspection no JVD. No carotid bruit. Trachea is in midline. Respiratory exam: clear to auscultation bilaterally posteriorly and anteriorly with good air movement. No rales, rhonchi or wheezes. Cardiovascular exam: regular rate and rhythm, no murmur or gallop or rub. No precordial lift. No bruits over the major arteries. Chest wall/torso: Anatomically normal. Tenderness to palpation along the right lateral chest that reproduces the pain which she complains of. This tenderness extends to the anterior right chest wall. Peripheral Pulses: 2+ throughout. GI/Abdominal exam: normal bowel sounds, soft and nontender, no abdominal bruits or pulsatile masses. Musculoskeletal/Extremities exam: normal inspection without edema or cyanosis. No deformities or trauma. Neurological exam: alert, oriented X3. There is no gross neurologic deficits. Psychiatric exam: normal affect, normal mood. Cognitive function is grossly intact. Skin exam: normal color, warm. No rashes or other skin lesions. Result/EKG - Labs CBC & BMP: 09/27/16 03:43 09/27/16 03:43 Lab Results: I have reviewed the past 24 hour labs Labs: Laboratory Results - last 24 hr 09/26/16 09/26/16 09/26/16 21:29 21:29 21:29 WBC 9.5 RBC 3.70 L Hgb 11.9 L Hct 35.2 L MCV 95.1 MCH 32 MCHC 33.8 RDW 14.8 Plt Count 230 D MPV 9.5 L Neut % (Auto) 69.1 Lymph % (Auto) 18.0 L Gonzales % (Auto) 10.2 Eos % (Auto) 1.6 Baso % (Auto) 0.2 Neut # (Auto) 6.6 Lymph # (Auto) 1.7 Gonzales # (Auto) 1.0 H Eos # (Auto) 0.2 Baso # (Auto) 0.0 Immature Gran % 0.9 Nucleated RBC % 0.0 Immature Gran # 0.09 Nucleated RBCs # 0.00 INR PT Patient/Control Mix D-Dimer, Quantitative Circ Anticoag PTT Sodium 136 Potassium 4.1 Chloride 101 Carbon Dioxide 27 Anion Gap 12.1 BUN 20 H Creatinine 1.30 H GFR Calculation 42 BUN/Creatinine Ratio 15.00 Glucose 101 Calculated Osmolality 274.0 Calcium 9.7 Troponin I B-Natriuretic Peptide 181 H Triglycerides Cholesterol LDL Cholesterol VLDL Cholesterol HDL Cholesterol Heart Disease Risk Ratio 09/26/16 09/26/16 09/27/16 21:29 Unknown 00:36 WBC RBC Hgb Hct MCV MCH MCHC RDW Plt Count MPV Neut % (Auto) Lymph % (Auto) Gonzales % (Auto) Eos % (Auto) Baso % (Auto) Neut # (Auto) Lymph # (Auto) Gonzales # (Auto) Eos # (Auto) Baso # (Auto) Immature Gran % Nucleated RBC % Immature Gran # Nucleated RBCs # INR 1.2 PT Patient/Control Mix 12.4 D-Dimer, Quantitative 3.7 Circ Anticoag PTT 30.5 Sodium Potassium Chloride Carbon Dioxide Anion Gap BUN Creatinine GFR Calculation BUN/Creatinine Ratio Glucose Calculated Osmolality Calcium Troponin I 0.022 B-Natriuretic Peptide Triglycerides 193 H Cholesterol 152 LDL Cholesterol 101.0 VLDL Cholesterol 38.6 HDL Cholesterol 27 L Heart Disease Risk Ratio 5.63 09/27/16 09/27/16 09/27/16 00:48 03:43 03:43 WBC 8.7 RBC 3.92 Hgb 12.4 Hct 37.4 MCV 95.4 MCH 32 MCHC 33.2 RDW 14.8 Plt Count 259 MPV 9.8 Neut % (Auto) 63.7 Lymph % (Auto) 22.6 Gonzales % (Auto) 10.3 Eos % (Auto) 2.0 Baso % (Auto) 0.2 Neut # (Auto) 5.5 Lymph # (Auto) 2.0 Gonzales # (Auto) 0.9 H Eos # (Auto) 0.2 Baso # (Auto) 0.0 Immature Gran % 1.2 Nucleated RBC % 0.0 Immature Gran # 0.10 Nucleated RBCs # 0.00 INR PT Patient/Control Mix D-Dimer, Quantitative Circ Anticoag PTT Sodium Potassium Chloride Carbon Dioxide Anion Gap BUN Creatinine GFR Calculation BUN/Creatinine Ratio Glucose Calculated Osmolality Calcium Troponin I 0.016 0.016 B-Natriuretic Peptide Triglycerides Cholesterol LDL Cholesterol VLDL Cholesterol HDL Cholesterol Heart Disease Risk Ratio 09/27/16 03:43 WBC RBC Hgb Hct MCV MCH MCHC RDW Plt Count MPV Neut % (Auto) Lymph % (Auto) Gonzales % (Auto) Eos % (Auto) Baso % (Auto) Neut # (Auto) Lymph # (Auto) Gonzales # (Auto) Eos # (Auto) Baso # (Auto) Immature Gran % Nucleated RBC % Immature Gran # Nucleated RBCs # INR PT Patient/Control Mix D-Dimer, Quantitative Circ Anticoag PTT Sodium 138 Potassium 4.7 Chloride 99 Carbon Dioxide 32 Anion Gap 11.7 BUN 21 H Creatinine 1.20 H GFR Calculation 46 BUN/Creatinine Ratio 17.00 Glucose 91 Calculated Osmolality 277.7 Calcium 10.5 H Troponin I B-Natriuretic Peptide Triglycerides Cholesterol LDL Cholesterol VLDL Cholesterol HDL Cholesterol Heart Disease Risk Ratio - Impressions Impressions: The patient's ECG really appears to be sinus rhythm with low voltage P waves. Patient's telemetry with episode of bradycardia as well as episode of ventricular tachycardia is noted.
[2016-09-27] MEDS: ACETAMINOPHEN 325 MG TABLET PO PRN ×2 (15:56→21:13)
[2016-09-28] MEDS: metroNIDAZOLE 500 MG TABLET PO SCH ×4 (06:12→23:26)
[2016-09-28] MEDS: ENOXAPARIN 100 MG/ML SYRINGE SUBCUT SCH (06:12)
--- NOTE | 2016-09-28 07:32 | EKG Report ---
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
[2016-09-28] MEDS: LEVOFLOXACIN 500 MG TABLET PO SCH (07:59)
[2016-09-28] MEDS: POTASSIUM CHLORIDE 20 MEQ TABLET PO SCH ×2 (08:00→20:04)
[2016-09-28] MEDS: ALLOPURINOL 300 MG TABLET PO SCH ×2 (08:00→20:04)
[2016-09-28] MEDS: FAMOTIDINE 20 MG TABLET PO SCH (08:00)
--- NOTE | 2016-09-28 08:46 | ECHO Report ---
Mandy Mcfarlane Exam Date: 09/27/2016 10:57 Referring Physician: Technologist: Genna Graham RDCS Age: 81 Ht (in): 62 Wt (lb): 196 Gender: F Exam Location: [facility] Echo Indications: Chest pain, unspecified, Bradycardia, unspecified, Shortness of breath, Nonsustained VT BP: 122 / 66 HR: 48 Rhythm: Other Technical Quality: Fair IMPRESSIONS 1. Left ventricle normal size systolic function ejection fraction of 55-60%. There is mild concentric left ventricular hypertrophy. 2. Right ventricle is normal size systolic function. 3. Moderately dilated right atrium and left atrium. 4. Mitral valve regurgitation. 5. Sclerotic aortic valve but without regurgitation or stenosis. 6. Tricuspid valve with mild to moderate regurgitation. 7. Mild elevated right-sided pressures. MEASUREMENTS (Male / Female) Normal Values 2D ECHO LV Diastolic Diameter PLAX 4.7 cm 4.2 - 5.9 / 3.9 - 5.3 cm LV Systolic Diameter PLAX 2.9 cm LV Fractional Shortening PLAX 38.5 % IVS Diastolic Thickness 1.1 cm 0.6 - 1.0 / 0.6 - 0.9 cm LVPW Diastolic Thickness 1.1 cm 0.6 - 1.0 / 0.6 - 0.9 cm RV Internal Dim ED PLAX 3.0 cm Aortic Root Diameter 3.2 cm LA Systolic Diameter LX 4.4 cm 3.0 - 4.0 / 2.7 - 3.8 cm DOPPLER TR Peak Velocity 326.0 cm/s TR Peak Gradient 42.5 mmHg FINDINGS Left Ventricle Normal left ventricular cavity size. Mild left ventricular hypertrophy. Left ventricular ejection fraction is estimated at 55-60 %. Right Ventricle The right ventricle is normal in size and function. Right Atrium Moderately increased right atrial size. Left Atrium Moderately increased left atrial size. Mitral Valve Morphologically normal mitral valve. Mild mitral valve regurgitation. Aortic Valve Tricusp structure with sclerosis without stenosis. There is no aortic regurgitation. Tricuspid Valve Morphologically normal tricuspid valve. [id number] tricuspid valve regurgitation. Tricuspid regurgitation velocities suggest a PAP of 48-53 mmHg. Pulmonic Valve Morphologically normal pulmonic valve. Trace pulmonary valve regurgitation. Pericardium Normal pericardium without effusion. Aorta Normal ascending aorta dimension. Ruben Parker MD (Electronically Signed) Final Date: 28 September 2016 08:45
[2016-09-28] MEDS: ENOXAPARIN 30 MG/0.3 ML SYRINGE SUBCUT SCH ×3 (10:01→23:26)
[2016-09-28] MEDS: FUROSEMIDE 40 MG/4 ML VIAL IV SCH (11:39)
[2016-09-28] MEDS: ACETAMINOPHEN 325 MG TABLET PO PRN (11:39)
[2016-09-28] MEDS ORDERED: KETOROLAC 15 MG/1 ML VIAL IV ONE (14:14)
--- NOTE | 2016-09-28 14:15 | Cardiology Progress Note ---
Missael Edmonds April, RN, am scribing for, and in the presence of, Champ Cornejo MD 14:10. Assessment and Plan - Time spent with patient Time spent with patient: Greater than 30 minutes (1) Bradycardia Status: Acute Assessment and plan: 1. Modest pleuritic atypical chest pain; this seems to be improving a bit. Consider continued PPI/H2 nader and Medrol Dosepak if this persists. I will give Toradol 50 mg IV 1. Acute coronary syndrome/angina is not suspected. 2. Normal ejection fraction noted on echocardiogram with moderately elevated PA pressure (approximately 50 mmHg) 3. RBBB with bradycardia; heart rates been in the 50s late morning and afternoon today. We will continue to monitor, though it does not seem to be symptomatic at this time. She is not on any medications that would slow her heart rate. Will check TSH; magnesium was normal. 4. Previous 14 beat run of nonsustained ventricular tachycardia. This has not recurred. No further workup for this as needed at this time. 5. Follow with Dr. martinez in approximately 2 weeks time. Current Visit: Yes (2) Chest wall pain Status: Acute Current Visit: Yes (3) Nonsustained ventricular tachycardia Status: Acute Current Visit: Yes Cardiology - PN: Subj Interval history: [employer] Receiving Clerk: Dr. Estrada SUMMARY: Ms. Mcfarlane is an 81-year-old female who is routinely followed by Dr. Estrada with a history of CVA, carotid disease, and hypertension. She reportedly had a normal cardiac perfusion study done 2 years ago. She developed right-sided chest pain on September 26. She was in the emergency department for any acute EKG changes, cardiac enzymes are unremarkable. The pain was aggravated by taking a deep breath or lying on her left side. She denies any chest trauma. She also had an episode of bradycardia and a 14 beat episode of nonsustained ventricular tachycardia. Chest x-ray showed cardiomegaly with findings consistent with mild CHF/pneumonitis. She has been started on Levaquin 500 mg p.o. daily and Lasix 40 mg IV daily. VQ lung scan was negative for PE. September 28, 2016: Ms. Mcfarlane is seen sitting up in chair in no acute distress. She reports she continues to have right-sided chest pain when she takes a deep breath or when she lies on her left side. She states the pain is not as bad as it was on admission. monitor car operator currently shows sinus rhythm with heart rates in the 60s. There are no strip scanned in to reflect this, the electronic device monitor states that she did have some bradycardia during the night with rates in the 40s. Electrolytes have been within normal range. She denies any shortness of breath, palpitations, or dizziness. Exam (Progress Note) - Constitutional Vitals: Period Temp Pulse Resp BP Sys/Hunter Pulse Ox Last 24 Hr 96.5 F-98.5 F 49-63 14-20 94-139/45-72 90-100 General appearance: no acute distress, over weight - Head Head exam: Absent: abrasion, hematoma - Eye Eye exam: Absent: periorbital swelling, laceration to eyelids - Respiratory Respiratory exam: Present: clear to auscultation bilaterally. Absent: accessory muscle use, chest wall tenderness - Cardiovascular Cardiovascular exam: Present: bradycardia, regular rate and rhythm, tachycardia - GI/Abdominal GI/Abdominal exam: Present: normal bowel sounds, soft. Absent: distended, tenderness - Extremities Exam Extremities exam: Present: edema (Trace to bilateral lower extremities) - Neurological Exam Neurological exam: Present: alert, oriented X3 - Psychiatric Psychiatric exam: Present: normal affect, normal mood - Skin Skin exam: Present: warm, dry Result/EKG - Labs CBC & BMP: 09/27/16 03:43 09/27/16 03:43 Lab Results: I have reviewed the past 24 hour labs Labs: Laboratory Results - last 24 hr 09/27/16 10:39 Magnesium 1.9 - Diagnostic Findings Procedure: Chest x-ray: report reviewed by me - EKG EKG results: interpreted by me EKG shows: sinus rhythm Chantal Edmonds Randall Scott, MD, personally performed the services described in this documentation, ascribed by Goldie Canas RN in my presence, and it is both accurate and complete 415 .
[2016-09-28] MEDS: CLOPIDOGREL 75 MG TABLET PO SCH (14:30)
[2016-09-28] MEDS: ASPIRIN CHEW 81 MG TABLET PO SCH (14:30)
--- NOTE | 2016-09-28 15:14 | Sleep Medicine Consult ---
Assessment and Plan (1) Unspecified sleep apnea Status: Acute Assessment and plan: With her history of pulmonary hypertension and prior stroke, think she needs sleep eval. Will set up outpatien polysomnography if discharged. All HST devices out tonight. Thanks for consult. Current Visit: Yes History of Present Illness Chief complaint: Sleep Apnea History of present illness: Ms. Mcfarlane is a 81 year old female admitted with SOB and found to have pulmonary hypertension by echo. Has no history of significant sleep issules and doesn't complain of snoring or ever awakening from sleep short of breath or stopping breathing during sleep. She does have symptoms of fatigue during the day but has an [place] Sleepiness Score of only 6. Was previously diagnosed with stroke but was daytime in onset. Has had cardiac arrythmias while here and on telemetry with both bradycardia and 14 beat run of Vtach. Home Medications Medication Instructions Recorded Confirmed Type Allopurinol 300 mg PO BID 11/10/15 09/26/16 History Clopidogrel [Plavix] 75 mg PO DAILY 11/10/15 09/26/16 History Potassium Chloride 20 meq PO BID 11/10/15 09/26/16 History raNITIdine HCl [Zantac Tab] 300 mg PO DAILY 11/10/15 09/26/16 History Levofloxacin Tab [Levaquin Tab] 500 mg PO DAILY #10 tablet 09/24/16 09/26/16 Rx metroNIDAZOLE TAB [Flagyl Cap/Tab] 500 mg PO Q8HR #20 tablet 09/24/16 09/26/16 Rx Allergies Allergy/AdvReac Type Severity Reaction Status Date / Time codeine Allergy RASH Verified 09/26/16 19:56 Penicillins Allergy HIVES Verified 09/27/16 02:26 Sulfa (Sulfonamide Allergy RASH Verified 09/26/16 19:56 Antibiotics) IV DYE Allergy ANAPHYLAXIS Uncoded 09/26/16 19:56 MULTIPLE ? BP MEDS Allergy Redness of Uncoded 09/26/16 19:56 Skin Review of systems: negative from sleep standpoint Exam (Pulmonay) H&P - Constitutional Vitals: Period Temp Pulse Resp BP Sys/Hunter Pulse Ox Last 24 Hr 97.0 F-98.5 F 49-63 14-20 94-126/45-72 90-100 - Eye Eye exam: Present: EOMI Pupils: Present: LUPIS - ENT ENT exam: Present: other (has class III Malampati) - Neck Neck exam: Present: normal inspection (neck circumference of 15.5 inches) - Respiratory Respiratory exam: Present: clear to auscultation bilaterally - Cardiovascular Cardiovascular exam: Present: regular rate and rhythm - GI/Abdominal GI/Abdominal exam: Present: soft, other (nontender without organomegaly or mass) - Neurological Exam Neurological exam: Present: alert, oriented X3 Medical,Surgical,& Family Hx - Medical History Cardio: History of: Cardiac Dysrhythmia (AFib on Plavix), Cerebrovascular Disease, Hypertension Neurology: History of: Cerebrovascular Accident (voice change (was unable to talk briefly after stroke) ) Rheumatology: History of;: Gout Genitourinary: History of: Kidney Stones - Surgical History Cardiac Surgeries: Patient Denies: Femoral-Popliteal Bypass Graft, Cardiac Catheterization, Cardiac Surgery, Carotid Endarterectomy, Internal Defibrillator, Vascular Access Devices Thoracic Surgeries: Surgical HX of;: Kidney (Renal Surgery), Nephrectomy (1968) Neurologic Surgeries: Patient denies: Neurologic Surgery HEENT Surgeries: Patient denies: Carotid Endarterectomy Abdominal Surgeries: Surgical HX of: Appendectomy Patient denies: Splenectomy Reproductive Surgeries: Patient denies;: Gynecologic Surgery - Family History Family History: Reports;: Family Cancer, Family Diabetes, Additional Family History (COPD) - Social History Smoking Status: Never smoker Frequency of Alcohol Use: None Type of Drug Use: None Results - Labs CBC & BMP: 09/27/16 03:43 09/27/16 03:43 Lab Results: I have reviewed the past 24 hour labs Specialty Discharge - Follow Up or Referrals Follow up with: Armani Estrada MD [Physician] - 2 Weeks
--- NOTE | 2016-09-28 15:54 | Hospitalist Progress Note ---
Assessment and Plan (1) Shortness of breath Status: Acute Assessment and plan: morbid obesity and pul htn, 98% on oxygen, ef of 55%, no evidence of PE, no heart failure Current Visit: Yes (2) Chest wall pain Status: Acute Assessment and plan: serial troponins negative, toradol given Current Visit: Yes (3) Bradycardia Status: Acute Assessment and plan: most likely due to ILDEFONSO, reassurance given Current Visit: Yes (4) Nonsustained ventricular tachycardia Status: Acute Assessment and plan: 14 beat run, has not occurred, no further workup by Cardiology Current Visit: Yes (5) Unspecified sleep apnea Status: Acute Assessment and plan: most likely the cause of her bradycardia, consult Dr. Rowan Current Visit: Yes Hospitalist: Subjective Interval history: Patient had multiple complaints including her bradycardia which she thought was secondary to her Plavix. I am concerned that she had sleep apnea and asked Dr. Rowan to see her. He will schedule an outpatient sleep study for her. Dr. Cornejo has seen her today. She seems to be rather asymptomatic from her bradycardia. No other workup plan Exam - Constitutional Vitals: Period Temp Pulse Resp BP Sys/Hunter Pulse Ox Last 24 Hr 97.0 F-98.5 F 49-63 14-20 94-126/45-72 90-100 Exam: Heart Rate-[edgardo] Lungs-[CTAB] GI-[+bs soft, NT] Ext-[no edema] Neuro [Motor 5/5], [alert and oriented times 3] psych [agitated mood and affect] General [no acute distress] Results - Labs CBC & BMP: 09/27/16 03:43 09/27/16 03:43 Lab Results: I have reviewed the past 24 hour labs - Diagnostic Findings Procedure: Ultrasound: report reviewed by me (echo ef 60%, dilated right and left atrium with EF 55% and pap of 53) Specialty Discharge - Follow Up or Referrals Follow up with: Armani Estrada MD [Physician] - 2 Weeks
[2016-09-29 05:19] LABS: Basophils # 0.1 10*3/uL (0.0-0.2); Basophils % 0.6 % (0.0-0.8); Eosinophils # 0.1 10*3/uL (0.0-0.87); Eosinophils % 1.7 % (0.00-10.9); Hematocrit 37.3 VOL% (35.7-47.0); Hemoglobin 12.3 GM/DL (12.0-16.0); Immature Granulocytes % 1.4 %; Immature Granulocytes Absolute 0.12 #; Lymphocytes # 2.3 10*3/uL (1.4-4.0); Lymphocytes % 27.5 % (21.3-54.2); Mean Corpuscular Hemoglobin 32 PG (27-34); Mean Corpuscular Volume 95.4 FL (87-102); Monocytes # 0.8 10*3/uL (0.11-0.8); Monocytes % 10.1 % (1.7-12.7); Neutrophils # 4.9 10*3/uL (1.4-7.4); Neutrophils % 58.7 % (38.7-73.9); Platelet Count 271 T/CUMM (130-400); Red Blood Count 3.91 MC/CUMM (3.8-5.5); Red Cell Distribution Width 14.6 % (9.3-17.3); White Blood Count 8.3 T/CUMM (4-12)
[2016-09-29 05:53] LABS: Calcium 8.7 MG/DL (8.5-10.1); Magnesium 2.2 MG/DL (1.8-2.4); Osmolality,Calculated 282.8 MOS/KG (273-304); Potassium 4.9 MMOL/L (3.5-5.1)
[2016-09-29 06:04] LABS: Band Neutrophils 1 % (0-10); Eosinophils 1 % (0-10); Hypochromasia 1+; Lymphocytes 27 % (20-55); Nucleated Red Blood Cells 1 (0-5); Platelet Estimate Adequate; Segmented Neutrophils 64 % (50-85); Total Cells Counted 100
[2016-09-29] MEDS: metroNIDAZOLE 500 MG TABLET PO SCH ×2 (06:40→13:07)
[2016-09-29] MEDS ORDERED: FUROSEMIDE 40 MG/4 ML VIAL IV SCH (09:00)
[2016-09-29] MEDS ORDERED: FUROSEMIDE 40 MG TABLET PO SCH (09:00)
[2016-09-29] MEDS: LEVOFLOXACIN 500 MG TABLET PO SCH (09:12)
[2016-09-29] MEDS: CLOPIDOGREL 75 MG TABLET PO SCH (09:12)
[2016-09-29] MEDS: POTASSIUM CHLORIDE 20 MEQ TABLET PO SCH (09:12)
[2016-09-29] MEDS: ALLOPURINOL 300 MG TABLET PO SCH (09:13)
[2016-09-29] MEDS: FAMOTIDINE 20 MG TABLET PO SCH (09:13)
[2016-09-29] MEDS: ASPIRIN CHEW 81 MG TABLET PO SCH (09:14)
[2016-09-29] MEDS: ENOXAPARIN 30 MG/0.3 ML SYRINGE SUBCUT SCH (09:14)
--- NOTE | 2016-09-29 09:42 | Discharge Summary ---
<Umesh Singh - Last Filed: 09/29/16 09:23> Hospital Course - Hospital Course Hospital Course: Ms. Mcfarlane is an 81 year old white female who presented to the [facility] on with complains of chest pain having onset that morning. On presentation , she reported that the pain awoke her from sleep and was sharp in quality progressing from the right chest wall across to the midsternal region. EKG revealed an undetermined regular rhythm, right bundle branch block, left anterior fascicular block with voltage criteria for LVH. CXR showed cardiomegaly with findings suggestive of CHF/pneumonitis. She was admitted to the hospitalist service for further evaluation and treatment with cardiology consultation. Lung scan obtain on admission revealed low probabillity for PE. Echocardiogram revealed LVEF estimated at 55-60% with mild concentric left ventricular hypertrophy. The patient does have mild to moderate tricuspid regurgitation with velocities to suggest a PAP of 48-53 mmHg. Serial troponins were all negative. Cardiology did not find any evidence of chest pain with cardiac etiology. She was given toradol 50 mg IV and responded well to this, reporting the pain resolved. She was treat for acute diastolic chf exacerbation. Patient having severe bradycardia and problems with afib most likely due to ILDEFONSO. Sleep medicine did evaluate the patient and decided to set up an outpatient polysomnography upon discharge. Patient was switched from IV lasix to PO lasix as we have removed as much fluid as is medically safe at this time. She has reached maximum benefit from hospitalization and is stable for discharge. She will be discharged home in her daughter's care. She has been instructed to follow up with Dr. Estrada in 2 weeks and sleep medicine will be contacting her regarding an outpatient evaluation within the next month. F/U with Dr Anum caicedo in one week for sleep study, Dr. Navarro in 2 weeks. Cardiology to decide about gaviota as she has a chads-Vas score of 7. - Time spent with patient Time with patient DS: Greater than 30 minutes Specialty Discharge - Follow Up or Referrals Follow up with: Armani Estrada MD [Physician] - 2 Weeks Discharge Plan - Discharge Data Disposition: Home Health Service - Discharge Medications New Aspirin Chew Tab 81 mg PO DAILY tablet Furosemide Tab [Lasix Tab] 40 mg PO DAILY #30 tablet Continue raNITIdine HCl [Zantac Tab] 300 mg PO DAILY Clopidogrel [Plavix] 75 mg PO DAILY Allopurinol 300 mg PO BID Levofloxacin Tab [Levaquin Tab] 500 mg PO DAILY #10 tablet metroNIDAZOLE TAB [Flagyl Cap/Tab] 500 mg PO Q8HR #20 tablet Changed Potassium Chloride 20 meq PO DAILY #30 tablet - Follow Up or Referral Follow Up: Armani Estrada MD [Physician] - 2 Weeks Himanshu Navarro MD [Primary Care Provider] - 2 Weeks Sara Rowan MD [Physician] - 1 Week (sascha for sleep study) - Forms/Instructions Exam - Constitutional Vitals: Period Temp Pulse Resp BP Sys/Hunter Pulse Ox Last 24 Hr 97.1 F-97.8 F 49-65 16-18 125-140/63-87 92-95 Discharge Results Procedures and tests throughout hospitalization: Pending Orders 09/30/16 04:00 Basic Metabolic Panel w/Mg IN AM Comp Blood Count Auto Diff IN AM 10/01/16 04:00 Basic Metabolic Panel w/Mg IN AM Comp Blood Count Auto Diff IN AM Labs on day of discharge: Labs from last 24 hours 09/29/16 09/29/16 09/28/16 03:32 03:32 16:54 WBC 8.3 RBC 3.91 Hgb 12.3 Hct 37.3 MCV 95.4 MCH 32 MCHC 33.0 RDW 14.6 Plt Count 271 MPV 10.0 Neut % (Auto) 58.7 Lymph % (Auto) 27.5 [place] % (Auto) 10.1 Eos % (Auto) 1.7 Baso % (Auto) 0.6 Neut # (Auto) 4.9 Lymph # (Auto) 2.3 [place] # (Auto) 0.8 Eos # (Auto) 0.1 Baso # (Auto) 0.1 Total Counted 100 Immature Gran % 1.4 Nucleated RBC % 0.0 Immature Gran # 0.12 Segmented Neutrophils 64 Band Neutrophils 1 Lymphocytes 27 Monocytes 6 Eosinophils 1 Basophils 1.0 H Nucleated RBCs 1 Nucleated RBCs # 0.00 Platelet Estimate Adequate Hypochromasia 1+ Sodium 137 Potassium 4.9 Chloride 97 L Carbon Dioxide 31 Anion Gap 13.9 BUN 40 H Creatinine 1.80 H GFR Calculation 28 BUN/Creatinine Ratio 22.00 H Glucose 92 Calculated Osmolality 282.8 Calcium 8.7 Magnesium 2.2 Free T4 TSH 3rd Generation 4.170 H 09/28/16 16:54 WBC RBC Hgb Hct MCV MCH MCHC RDW Plt Count MPV Neut % (Auto) Lymph % (Auto) [place] % (Auto) Eos % (Auto) Baso % (Auto) Neut # (Auto) Lymph # (Auto) [place] # (Auto) Eos # (Auto) Baso # (Auto) Total Counted Immature Gran % Nucleated RBC % Immature Gran # Segmented Neutrophils Band Neutrophils Lymphocytes Monocytes Eosinophils Basophils Nucleated RBCs Nucleated RBCs # Platelet Estimate Hypochromasia Sodium Potassium Chloride Carbon Dioxide Anion Gap BUN Creatinine GFR Calculation BUN/Creatinine Ratio Glucose Calculated Osmolality Calcium Magnesium Free T4 0.85 TSH 3rd Generation DS: Provider Date of admission: 09/27/16 00:46 Primary care physician: Himanshu Navarro MD Attending physician on admission: Ruben Reid MD Consults: 09/27/16 00:45 Consult to Physician [CONS] Routine Comment: chest pain in Dr Estrada patient Consulting Provider: Cardiology - [facility] 09/28/16 09:50 Consult to Sleep Center [CONS] Routine Reason for Sleep Center: Sleep Center Physician Consult Comment: severe bradycardia 09/28/16 15:48 Consult to Case Mgmt/Social Srvs [CONS] Routine Reason for Case Mgmt/Social Srvs: Home Health Discharging clinician: Umesh RABAGO Expected date of discharge: 09/29/16 <Patricia Oquendo - Last Filed: 09/29/16 10:11> Diagnosis - Discharge Diagnosis (1) Shortness of breath Status: Acute (2) Chest wall pain Status: Acute (3) Bradycardia Status: Acute (4) Nonsustained ventricular tachycardia Status: Acute (5) Unspecified sleep apnea Status: Acute Discharge Plan - Discharge Data Condition at Discharge: Stable Discharge Diet: heart healthy Activity: resume usual activities as tolerated Hygiene: no restrictions Weight Bearing at Discharge: full weight bearing - Forms/Instructions Additional Discharge Instructions: Patient currently in afib, need decision about eliquis from Cardiology Exam - Constitutional General appearance: no acute distress, over weight - Respiratory Respiratory exam: Present: clear to auscultation bilaterally. Absent: rhonchi, wheezes - Cardiovascular Cardiovascular exam: Present: bradycardia - Extremities Exam Extremities exam: Present: normal inspection, normal capillary refill - Psychiatric Psychiatric exam: Present: normal affect, normal mood
--- NOTE | 2016-09-29 11:25 | Physician Query Form ---
CLICK EDIT DOCUMENT TO SELECT QUERY ANSWER --> OK --> SIGN Meme Chong RN Clinical Drive Thru Order Taker W) [phone] (f) [phone] [email or web address] PROVIDERS: Make your selection(s) from the choices in EACH section by typing an "x" and enter comments in the comment section. Please use your independent medical judgment in providing your response. This request does not imply that any particular answer is desired or expected. CLINICAL INDICATORS: (Providers should not edit this section) Pt. admitted with CHF and diuresed with IV Lasix. Creatinine of 1.20 and increased to 1.80 with a GFR of 28. Clarify which of the following most accurately represents the patient's renal status: ( ) Acute kidney injury (non-traumatic) ( ) Acute renal failure ( ) Acute renal failure with underlying Chronic Kidney Disease (CKD) - please provide stage below (x ) CKD - please provide stage below ( ) Other, please specify: ( ) Clinically unable to determine Chronic Kidney Disease Stages Source: National Kidney Disease Foundation ( ) Stage I (eGFR > or = 90) ( ) Stage II (eGFR 60 - 89) ( x) Stage III (eGFR 30 - 59) ( ) Stage IV (eGFR 15 - 29) ( ) Stage V (eGFR < 15 or dialysis) COMMENTS: PLEASE ALSO DOCUMENT RESPONSE IN PROGRESS NOTES AND/OR DISCHARGE SUMMARY Use of terms such as suspected, likely, or probable (associated with a specific diagnosis that is being evaluated, monitored, or treated as if it exists) are acceptable and can be restated in the discharge summary if not ruled out. MTDD
[2016-09-29 12:11] VITALS: BP 122/65
[2016-09-29] MEDS ORDERED: FLUCONAZOLE 100 MG TABLET PO ONE (12:29)
--- NOTE | 2016-09-29 12:54 | Sleep Medicine Progress Note ---
Assessment and Plan (1) Unspecified sleep apnea Status: Acute Assessment and plan: Patient will be scheduled for outpatient polysomnography and follow-up. Thank you for the consult. Current Visit: Yes Sleep Medicine Subjective Interval history: Stop by to check on patient. She does appear to be feeling better. We were unable to do HST on her last night due to lack of availability of HST devices. We will schedule her for outpatient sleep study evaluation. Thank you for the consult. Exam (Progress Note) - Constitutional Vitals: Period Temp Pulse Resp BP Sys/Hunter Pulse Ox Last 24 Hr 96.5 F-97.8 F 49-65 16-18 122-140/65-87 92-95 Exam: Patient alert and responsive in no acute distress. She answered all questions appropriately. Results - Labs CBC & BMP: 09/29/16 03:32 09/29/16 03:32 Lab Results: I have reviewed the past 24 hour labs Specialty Discharge - Follow Up or Referrals Follow up with: Himanshu Navarro MD [Primary Care Provider] - 10/14/16 2:45 pm Sara Rowan MD [Physician] - 1 Week (sleep study is scheduled for 10/25/16 at 7:15 pm the office will be in contact with you before the study for more information.) Armani Estrada MD [Physician] - 10/14/16 8:30 am
[2016-09-29] MEDS ORDERED: APIXABAN 2.5 MG TABLET PO SCH (13:00)
--- NOTE | 2016-09-29 13:14 | Cardiology Progress Note ---
I, Goldie Canas RN, am scribing for, and in the presence of, Champ Cornejo MD 13:14. Assessment and Plan (1) Bradycardia Status: Acute Assessment and plan: Initial assessment and plan September 28, 2016: 1. Modest pleuritic atypical chest pain; this seems to be improving a bit. Consider continued PPI/H2 nader and Medrol Dosepak if this persists. I will give Toradol 50 mg IV 1. Acute coronary syndrome/angina is not suspected. 2. Normal ejection fraction noted on echocardiogram with moderately elevated PA pressure (approximately 50 mmHg) 3. RBBB with bradycardia; heart rates been in the 50s late morning and afternoon today. We will continue to monitor, though it does not seem to be symptomatic at this time. She is not on any medications that would slow her heart rate. Will check TSH; magnesium was normal. 4. Previous 14 beat run of nonsustained ventricular tachycardia. This has not recurred. No further workup for this as needed at this time. 5. Follow with Dr. Estrada in approximately 2 weeks time. Assessment and plan September 29, 2016: 1. I reviewed Ms. leonardo of these EKGs here and she has one was read as atrial fibrillation with slow response in the 50s. Given this and her history of stroke, would change aspirin Eliquis 2.5 mg twice daily and continue Plavix. She reportedly has history of carotid disease. 2. She has bradycardia with heart rate in the 50s today but is asymptomatic. 3. Place Holter monitor 48 hours to see if she has sick sinus syndrome or paroxysmal atrial fibrillation 4. She can be discharged from cardiac standpoint. We will try to schedule follow-up with Dr. martinez in less than 2 weeks time, and he can review her Holter and decide the best anticoagulation combination for her. 5. Apparently she had one run of nonsustained ventricular tachycardia for 14 beats prior to becoming on service. This does not appear to have recurred. 6. Creatinine is slightly up to 1.8; she is not complaining of chest pain today. Current Visit: Yes (2) Chest wall pain Status: Acute Current Visit: Yes (3) Nonsustained ventricular tachycardia Status: Acute Current Visit: Yes Cardiology - PN: Subj Interval history: Keg Washer: Dr. Estrada SUMMARY: Ms. Mcfarlane is an 81-year-old female who is routinely followed by Dr. Estrada with a history of CVA, carotid disease, and hypertension. She reportedly had a normal cardiac perfusion study done 2 years ago. She developed right-sided chest pain on September 26. She was in the emergency department for any acute EKG changes, cardiac enzymes are unremarkable. The pain was aggravated by taking a deep breath or lying on her left side. She denies any chest trauma. She also had an episode of bradycardia and a 14 beat episode of nonsustained ventricular tachycardia. Chest x-ray showed cardiomegaly with findings consistent with mild CHF/pneumonitis. She has been started on Levaquin 500 mg p.o. daily and Lasix 40 mg IV daily. VQ lung scan was negative for PE. September 28, 2016: Ms. Mcfarlane is seen sitting up in chair in no acute distress. She reports she continues to have right-sided chest pain when she takes a deep breath or when she lies on her left side. She states the pain is not as bad as it was on admission. laboratory monitor currently shows sinus rhythm with heart rates in the 60s. There are no strip scanned in to reflect this, the case monitor states that she did have some bradycardia during the night with rates in the 40s. Electrolytes have been within normal range. She denies any shortness of breath, palpitations, or dizziness. September 29, 2016: Ms. Mcfarlane is seen sitting up in chair. She reports she is ready to go home discharge plans have been initiated. She denies any chest pain or shortness of breath. She appears to be going from sinus bradycardia to atrial fibrillation with slow ventricular response. laboratory monitor currently shows sinus bradycardia with heart rates in the 50s. She has a chads vasc score of 7. We will have her go to [facility] and get a 48 hour Holter. Schedule follow-up with Dr. Estrada in 1-2 weeks. Exam (Progress Note) - Constitutional Vitals: Period Temp Pulse Resp BP Sys/Hunter Pulse Ox Last 24 Hr 97.1 F-97.8 F 49-65 16-18 125-140/63-87 92-95 General appearance: no acute distress, morbidly obese - Head Head exam: Absent: abrasion, hematoma - Eye Eye exam: Absent: periorbital swelling, laceration to eyelids - Neck Neck exam: Absent: tenderness - Respiratory Respiratory exam: Present: clear to auscultation bilaterally. Absent: accessory muscle use, chest wall tenderness - Cardiovascular Cardiovascular exam: Present: bradycardia, regular rate and rhythm - GI/Abdominal GI/Abdominal exam: Present: normal bowel sounds, soft. Absent: distended, tenderness - Extremities Exam Extremities exam: Absent: edema - Neurological Exam Neurological exam: Present: alert, oriented X3 - Psychiatric Psychiatric exam: Present: normal affect, normal mood - Skin Skin exam: Present: warm, dry Result/EKG - Labs CBC & BMP: 09/29/16 03:32 09/29/16 03:32 Lab Results: I have reviewed the past 24 hour labs Labs: Laboratory Results - last 24 hr 09/28/16 09/28/16 09/29/16 16:54 16:54 03:32 WBC 8.3 RBC 3.91 Hgb 12.3 Hct 37.3 MCV 95.4 MCH 32 MCHC 33.0 RDW 14.6 Plt Count 271 MPV 10.0 Neut % (Auto) 58.7 Lymph % (Auto) 27.5 [place] % (Auto) 10.1 Eos % (Auto) 1.7 Baso % (Auto) 0.6 Neut # (Auto) 4.9 Lymph # (Auto) 2.3 [place] # (Auto) 0.8 Eos # (Auto) 0.1 Baso # (Auto) 0.1 Total Counted 100 Immature Gran % 1.4 Nucleated RBC % 0.0 Immature Gran # 0.12 Segmented Neutrophils 64 Band Neutrophils 1 Lymphocytes 27 Monocytes 6 Eosinophils 1 Basophils 1.0 H Nucleated RBCs 1 Nucleated RBCs # 0.00 Platelet Estimate Adequate Hypochromasia 1+ Sodium Potassium Chloride Carbon Dioxide Anion Gap BUN Creatinine GFR Calculation BUN/Creatinine Ratio Glucose Calculated Osmolality Calcium Magnesium Free T4 0.85 TSH 3rd Generation 4.170 H 09/29/16 03:32 WBC RBC Hgb Hct MCV MCH MCHC RDW Plt Count MPV Neut % (Auto) Lymph % (Auto) [place] % (Auto) Eos % (Auto) Baso % (Auto) Neut # (Auto) Lymph # (Auto) [place] # (Auto) Eos # (Auto) Baso # (Auto) Total Counted Immature Gran % Nucleated RBC % Immature Gran # Segmented Neutrophils Band Neutrophils Lymphocytes Monocytes Eosinophils Basophils Nucleated RBCs Nucleated RBCs # Platelet Estimate Hypochromasia Sodium 137 Potassium 4.9 Chloride 97 L Carbon Dioxide 31 Anion Gap 13.9 BUN 40 H Creatinine 1.80 H GFR Calculation 28 BUN/Creatinine Ratio 22.00 H Glucose 92 Calculated Osmolality 282.8 Calcium 8.7 Magnesium 2.2 Free T4 TSH 3rd Generation - EKG EKG results: interpreted by me EKG shows: bradycardia, sinus rhythm Specialty Discharge - Follow Up or Referrals Follow up with: Himanshu Navarro MD [Primary Care Provider] - 10/14/16 2:45 pm Sara Rowan MD [Physician] - 1 Week (sleep study is scheduled for 10/25/16 at 7:15 pm the office will be in contact with you before the study for more information.) Armani Estrada MD [Physician] - 10/14/16 8:30 am IChantal Randall Scott, MD, personally performed the services described in this documentation, ascribed by Goldie Canas RN in my presence, and it is both accurate and complete 314 .
== END 2016-09-29 15:08 | disposition home health service (06) | DRG 291 ==
LOC: N.ED 19:43 → SUATTDRO 09-27 00:45 → N.EDINP 09-27 00:45 → SUATTDRO 09-27 00:46 → N.TELES 09-27 01:14
PROVIDERS: ADMIT Internal Medicine; ATTEND Internal Medicine

== ENCOUNTER 2020-07-14 16:13 | Inpatient (IN) ==
[2020-07-14] MEDS ORDERED: SODIUM CHLORIDE 0.9% 500 ML IV STA ×2 (16:49→19:29)
[2020-07-14] MEDS ORDERED: ONDANSETRON 4 MG/2 ML VIAL IV STA (16:49)
[2020-07-14 17:11] LABS: Basophils % 0.1 % (0.0-0.8); Eosinophils # 0.1 10*3/uL (0.0-0.87); Eosinophils % 0.4 % (0.00-10.9); Hematocrit 27.4 VOL% (35.7-47.0); Hemoglobin 8.8 GM/DL (12.0-16.0); Immature Granulocytes % 0.8 %; Immature Granulocytes Absolute 0.14 #; Lymphocytes # 1.5 10*3/uL (1.4-4.0); Lymphocytes % 8.8 % (21.3-54.2); Mean Corpuscular HGB Conc 32.1 GM/DL (32-36); Mean Corpuscular Volume 92.9 FL (87-102); NRBC # 0.03 10*3/uL; Neutrophils % 79.9 % (38.7-73.9); Platelet Count 279 T/CUMM (130-400); Red Blood Count 2.95 MC/CUMM (3.8-5.5); Red Cell Distribution Width 15.4 % (9.3-17.3); White Blood Count 16.9 T/CUMM (4-12)
[2020-07-14 17:29] LABS: Bacteria,Urine Moderate /HPF (Few); Bilirubin,Urine Negative (Negative); Blood, Urine Moderate mg/dL (Negative); Glucose,Urine (UA) Negative (Negative); Ketones,Urine Negative (Negative); Mucus,Urine Occasional /LPF (Occasional); Nitrite,Urine Negative (Negative); Protein,Urine 30 MG/DL; RBC,Urine 21 /HPF (0-4); Squamous Epithelial Cell,Urine Few /HPF (0-10); Urine Appearance CLOUDY (Clear); Urine Color Yellow (Yellow); Urine Specific Gravity 1.011 (1.001-1.035); Urine Urobilinogen < 2.0 EU/DL (0.2-1.0)
[2020-07-14 17:32] LABS: Albumin 3.1 G/DL (3.4-5.0); Bilirubin,Total 0.7 MG/DL (0.2-1.0); Calcium 10.3 MG/DL (8.5-10.1); Osmolality,Calculated 276.4 MOS/KG (273-304); Potassium 4.8 MMOL/L (3.5-5.1); Total Protein 7.9 G/DL (6.4-8.2)
[2020-07-14] MEDS ORDERED: metroNIDAZOLE INJ 500 MG/100 ML PREMIX IV ONE (19:29)
[2020-07-14] MEDS ORDERED: CIPROFLOXACIN INJ 400 MG/200 ML PREMIX IV ONE (19:29)
[2020-07-14] MEDS ORDERED: GLUCAGON 1 MG VIAL IM PRN (20:33)
[2020-07-14] MEDS ORDERED: DEXTROSE 50% 25 GM/50 ML VIAL IV PRN (20:33)
[2020-07-14] MEDS: SODIUM CHLORIDE 0.9% 1,000 ML IV SCH (22:52)
[2020-07-14] MEDS: ENOXAPARIN 60 MG/0.6 ML SYRINGE SUBCUT SCH (22:53)
[2020-07-15] MEDS: metroNIDAZOLE INJ 500 MG/100 ML PREMIX IV SCH ×4 (02:55→21:22)
[2020-07-15 06:45] LABS: Basophils % 0.1 % (0.0-0.8); Eosinophils % 0.2 % (0.00-10.9); Hematocrit 26.7 VOL% (35.7-47.0); Hemoglobin 8.6 GM/DL (12.0-16.0); Immature Granulocytes % 0.6 %; Immature Granulocytes Absolute 0.08 #; Lymphocytes # 1.2 10*3/uL (1.4-4.0); Lymphocytes % 8.6 % (21.3-54.2); Mean Corpuscular HGB Conc 32.2 GM/DL (32-36); Mean Corpuscular Volume 93.4 FL (87-102); Mean Platelet Volume 10.2 FL (9.6-12.0); Monocytes % 10.4 % (1.7-12.7); Neutrophils % 80.1 % (38.7-73.9); Platelet Count 238 T/CUMM (130-400); Red Blood Count 2.86 MC/CUMM (3.8-5.5); Red Cell Distribution Width 15.4 % (9.3-17.3); White Blood Count 14.4 T/CUMM (4-12)
[2020-07-15 07:08] LABS: Albumin 2.5 G/DL (3.4-5.0); Bilirubin,Total 1.1 MG/DL (0.2-1.0); Osmolality,Calculated 287.4 MOS/KG (273-304); Potassium 4.3 MMOL/L (3.5-5.1); Total Protein 6.7 G/DL (6.4-8.2)
[2020-07-15] MEDS: SODIUM CHLORIDE 0.9% 1,000 ML IV SCH (15:41)
[2020-07-15] MEDS: SOTALOL 80 MG TABLET PO SCH (21:21)
[2020-07-15] MEDS: allopurinoL 300 MG TABLET PO SCH (21:21)
[2020-07-15] MEDS: ENOXAPARIN 60 MG/0.6 ML SYRINGE SUBCUT SCH (21:21)
[2020-07-15] MEDS: CIPROFLOXACIN INJ 400 MG/200 ML PREMIX IV SCH (23:20)
[2020-07-16] MEDS: ACETAMINOPHEN 325 MG TABLET PO PRN ×2 (00:20→21:57)
[2020-07-16] MEDS: metroNIDAZOLE INJ 500 MG/100 ML PREMIX IV SCH ×4 (02:40→20:40)
[2020-07-16 08:18] LABS: Basophils % 0.1 % (0.0-0.8); Eosinophils % 0.1 % (0.00-10.9); Hemoglobin 8.2 GM/DL (12.0-16.0); Immature Granulocytes % 0.8 %; Immature Granulocytes Absolute 0.09 #; Lymphocytes # 0.9 10*3/uL (1.4-4.0); Lymphocytes % 8.2 % (21.3-54.2); Mean Corpuscular HGB Conc 32.8 GM/DL (32-36); Mean Corpuscular Volume 92.3 FL (87-102); Mean Platelet Volume 9.6 FL (9.6-12.0); Monocytes % 10.9 % (1.7-12.7); NRBC # 0.02 10*3/uL; Neutrophils % 79.9 % (38.7-73.9); Platelet Count 218 T/CUMM (130-400); Red Blood Count 2.71 MC/CUMM (3.8-5.5); Red Cell Distribution Width 15.9 % (9.3-17.3); White Blood Count 10.9 T/CUMM (4-12)
[2020-07-16] MEDS: allopurinoL 300 MG TABLET PO SCH ×2 (08:27→20:41)
[2020-07-16] MEDS: SOTALOL 80 MG TABLET PO SCH ×2 (08:27→20:41)
[2020-07-16] MEDS: SODIUM CHLORIDE 0.9% 1,000 ML IV SCH (09:38)
[2020-07-16] MEDS: ONDANSETRON 4 MG/2 ML VIAL IV PRN ×2 (13:44→19:03)
[2020-07-16] MEDS: LOPERAMIDE 2 MG CAPSULE PO PRN (19:02)
[2020-07-16] MEDS: ENOXAPARIN 60 MG/0.6 ML SYRINGE SUBCUT SCH (21:57)
[2020-07-16] MEDS: CIPROFLOXACIN INJ 400 MG/200 ML PREMIX IV SCH (21:57)
[2020-07-17] MEDS: LOPERAMIDE 2 MG CAPSULE PO PRN
[2020-07-17] MEDS: metroNIDAZOLE INJ 500 MG/100 ML PREMIX IV SCH ×4 (02:42→20:37)
[2020-07-17] MEDS: ONDANSETRON 4 MG/2 ML VIAL IV PRN ×3 (02:42→20:35)
[2020-07-17] MEDS: SODIUM CHLORIDE 0.9% 1,000 ML IV SCH ×3 (02:42→20:37)
[2020-07-17 05:13] LABS: Basophils % 0.2 % (0.0-0.8); Eosinophils # 0.1 10*3/uL (0.0-0.87); Eosinophils % 0.6 % (0.00-10.9); Hematocrit 26.3 VOL% (35.7-47.0); Hemoglobin 8.5 GM/DL (12.0-16.0); Immature Granulocytes % 0.9 %; Immature Granulocytes Absolute 0.11 #; Lymphocytes # 1.2 10*3/uL (1.4-4.0); Lymphocytes % 9.4 % (21.3-54.2); Mean Corpuscular HGB Conc 32.3 GM/DL (32-36); Mean Corpuscular Volume 93.6 FL (87-102); Mean Platelet Volume 9.5 FL (9.6-12.0); Monocytes % 9.3 % (1.7-12.7); Neutrophils % 79.6 % (38.7-73.9); Platelet Count 228 T/CUMM (130-400); Red Blood Count 2.81 MC/CUMM (3.8-5.5); Red Cell Distribution Width 15.9 % (9.3-17.3); White Blood Count 12.5 T/CUMM (4-12)
[2020-07-17 05:43] LABS: Albumin 2.4 G/DL (3.4-5.0); Bilirubin,Total 1.1 MG/DL (0.2-1.0); Calcium 9.7 MG/DL (8.5-10.1); Osmolality,Calculated 287.5 MOS/KG (273-304); Potassium 3.7 MMOL/L (3.5-5.1); Risk Ratio 2.36; Total Protein 6.4 G/DL (6.4-8.2); VLDL CHOLESTEROL 7.8 MG/DL
[2020-07-17] MEDS: SOTALOL 80 MG TABLET PO SCH ×2 (08:52→20:40)
[2020-07-17] MEDS: allopurinoL 300 MG TABLET PO SCH ×2 (08:53→20:40)
[2020-07-17] MEDS: ACETAMINOPHEN 325 MG TABLET PO PRN ×2 (08:53→20:40)
[2020-07-17] MEDS: ENOXAPARIN 60 MG/0.6 ML SYRINGE SUBCUT SCH (21:58)
[2020-07-17] MEDS: CIPROFLOXACIN INJ 400 MG/200 ML PREMIX IV SCH (21:58)
[2020-07-18] MEDS: metroNIDAZOLE INJ 500 MG/100 ML PREMIX IV SCH ×4 (01:01→21:29)
[2020-07-18] MEDS: ACETAMINOPHEN 325 MG TABLET PO PRN ×4 (02:15→22:00)
[2020-07-18 06:11] LABS: Basophils % 0.1 % (0.0-0.8); Eosinophils % 0.2 % (0.00-10.9); Hematocrit 24.9 VOL% (35.7-47.0); Immature Granulocytes % 0.8 %; Lymphocytes % 8.4 % (21.3-54.2); Mean Corpuscular HGB Conc 32.1 GM/DL (32-36); Mean Corpuscular Volume 93.3 FL (87-102); Mean Platelet Volume 10.1 FL (9.6-12.0); Monocytes % 8.9 % (1.7-12.7); NRBC # 0.02 10*3/uL; Neutrophils % 81.6 % (38.7-73.9); Platelet Count 232 T/CUMM (130-400); Red Blood Count 2.67 MC/CUMM (3.8-5.5); Red Cell Distribution Width 16.1 % (9.3-17.3); White Blood Count 11.9 T/CUMM (4-12)
[2020-07-18 06:19] LABS: Calcium 9.3 MG/DL (8.5-10.1); Osmolality,Calculated 288.4 MOS/KG (273-304); Potassium 3.7 MMOL/L (3.5-5.1)
[2020-07-18] MEDS: allopurinoL 300 MG TABLET PO SCH ×2 (09:26→21:30)
[2020-07-18] MEDS: SOTALOL 80 MG TABLET PO SCH ×2 (09:26→21:30)
[2020-07-18] MEDS ORDERED: LOPERAMIDE 2 MG CAPSULE PO PRN (13:47)
[2020-07-18] MEDS: SODIUM CHLORIDE 0.9% 1,000 ML IV SCH (14:21)
[2020-07-18] MEDS: ENOXAPARIN 60 MG/0.6 ML SYRINGE SUBCUT SCH (21:30)
[2020-07-18] MEDS: CIPROFLOXACIN INJ 400 MG/200 ML PREMIX IV SCH (22:30)
[2020-07-19] MEDS: metroNIDAZOLE INJ 500 MG/100 ML PREMIX IV SCH ×2 (02:12→19:15)
[2020-07-19] MEDS: ACETAMINOPHEN 325 MG TABLET PO PRN ×4 (02:18→22:43)
[2020-07-19 06:52] LABS: Basophils % 0.1 % (0.0-0.8); Eosinophils # 0.1 10*3/uL (0.0-0.87); Eosinophils % 0.7 % (0.00-10.9); Hematocrit 28.2 VOL% (35.7-47.0); Hemoglobin 8.8 GM/DL (12.0-16.0); Immature Granulocytes % 0.7 %; Immature Granulocytes Absolute 0.09 #; Lymphocytes # 1.3 10*3/uL (1.4-4.0); Lymphocytes % 10.1 % (21.3-54.2); Mean Corpuscular HGB Conc 31.2 GM/DL (32-36); Mean Corpuscular Volume 93.7 FL (87-102); Mean Platelet Volume 9.8 FL (9.6-12.0); Monocytes % 8.7 % (1.7-12.7); NRBC # 0.02 10*3/uL; Neutrophils % 79.7 % (38.7-73.9); Platelet Count 294 T/CUMM (130-400); Red Blood Count 3.01 MC/CUMM (3.8-5.5); White Blood Count 12.9 T/CUMM (4-12)
[2020-07-19 07:31] LABS: Albumin 2.3 G/DL (3.4-5.0); Bilirubin,Direct 0.32 MG/DL (0.0-0.20); Bilirubin,Indirect 0.6 MG/DL (0.0-1.0); Bilirubin,Total 0.9 MG/DL (0.2-1.0); Calcium 9.5 MG/DL (8.5-10.1); Osmolality,Calculated 285.4 MOS/KG (273-304); Potassium 3.1 MMOL/L (3.5-5.1); Total Protein 5.9 G/DL (6.4-8.2)
[2020-07-19] MEDS: SOTALOL 80 MG TABLET PO SCH ×2 (10:33→22:09)
[2020-07-19] MEDS: allopurinoL 300 MG TABLET PO SCH ×2 (10:34→22:09)
[2020-07-19] MEDS: ERTAPENEM 1,000 MG in SODIUM CHLORIDE 0.9% 100 ML IV SCH (11:20)
[2020-07-19] MEDS: SODIUM CHLORIDE 0.9% 1,000 ML IV SCH (13:41)
[2020-07-19] MEDS ORDERED: POTASSIUM CHLORIDE 20 MEQ/15 ML UDCUP PO ONE (14:34)
[2020-07-19] MEDS ORDERED: MAGNESIUM SULF RIDER 2 GM/50 ML PREMIX IV ONE (14:34)
[2020-07-19] MEDS: ENOXAPARIN 60 MG/0.6 ML SYRINGE SUBCUT SCH (22:10)
[2020-07-20] MEDS: SODIUM CHLORIDE 0.9% 1,000 ML IV SCH (05:55)
[2020-07-20 06:35] LABS: Basophils % 0.1 % (0.0-0.8); Eosinophils # 0.1 10*3/uL (0.0-0.87); Eosinophils % 0.6 % (0.00-10.9); Hematocrit 28.5 VOL% (35.7-47.0); Hemoglobin 9.1 GM/DL (12.0-16.0); Immature Granulocytes % 0.8 %; Immature Granulocytes Absolute 0.09 #; Lymphocytes # 1.1 10*3/uL (1.4-4.0); Lymphocytes % 9.7 % (21.3-54.2); Mean Corpuscular HGB Conc 31.9 GM/DL (32-36); Mean Corpuscular Volume 92.5 FL (87-102); Monocytes % 9.8 % (1.7-12.7); NRBC # 0.02 10*3/uL; Platelet Count 268 T/CUMM (130-400); Red Blood Count 3.08 MC/CUMM (3.8-5.5); Red Cell Distribution Width 16.7 % (9.3-17.3); White Blood Count 11.6 T/CUMM (4-12)
[2020-07-20 06:51] LABS: Albumin 2.2 G/DL (3.4-5.0); Bilirubin,Total 0.8 MG/DL (0.2-1.0); Calcium 9.4 MG/DL (8.5-10.1); Potassium 3.4 MMOL/L (3.5-5.1)
[2020-07-20] MEDS: SOTALOL 80 MG TABLET PO SCH ×2 (09:38→20:24)
[2020-07-20] MEDS: allopurinoL 300 MG TABLET PO SCH ×2 (09:38→20:25)
[2020-07-20] MEDS: ERTAPENEM 1,000 MG in SODIUM CHLORIDE 0.9% 100 ML IV SCH (11:16)
[2020-07-20] MEDS ORDERED: POTASSIUM CHLORIDE 20 MEQ/15 ML UDCUP PO ONE (14:04)
[2020-07-20] MEDS: ENOXAPARIN 60 MG/0.6 ML SYRINGE SUBCUT SCH (20:25)
[2020-07-20] MEDS: ACETAMINOPHEN 325 MG TABLET PO PRN (20:28)
[2020-07-21] MEDS: SODIUM CHLORIDE 0.9% 1,000 ML IV SCH (02:16)
[2020-07-21 06:18] LABS: Basophils % 0.2 % (0.0-0.8); Eosinophils # 0.1 10*3/uL (0.0-0.87); Eosinophils % 0.8 % (0.00-10.9); Hematocrit 28.4 VOL% (35.7-47.0); Immature Granulocytes % 1.2 %; Immature Granulocytes Absolute 0.13 #; Lymphocytes # 1.6 10*3/uL (1.4-4.0); Mean Corpuscular HGB Conc 31.7 GM/DL (32-36); Mean Platelet Volume 9.9 FL (9.6-12.0); Monocytes % 12.4 % (1.7-12.7); NRBC # 0.02 10*3/uL; Neutrophils % 70.4 % (38.7-73.9); Platelet Count 267 T/CUMM (130-400); Red Blood Count 3.02 MC/CUMM (3.8-5.5); White Blood Count 10.9 T/CUMM (4-12)
[2020-07-21 06:46] LABS: Calcium 9.3 MG/DL (8.5-10.1); Osmolality,Calculated 291.7 MOS/KG (273-304); Potassium 3.2 MMOL/L (3.5-5.1)
[2020-07-21] MEDS: allopurinoL 300 MG TABLET PO SCH ×2 (09:59→21:34)
[2020-07-21] MEDS: SOTALOL 80 MG TABLET PO SCH ×2 (09:59→21:34)
[2020-07-21] MEDS: ERTAPENEM 1,000 MG in SODIUM CHLORIDE 0.9% 100 ML IV SCH ×2 (10:00→11:41)
[2020-07-21] MEDS ORDERED: POTASSIUM CHLORIDE 20 MEQ/15 ML UDCUP PO ONE (10:00)
[2020-07-21] MEDS: ACETAMINOPHEN 325 MG TABLET PO PRN ×2 (10:07→21:35)
[2020-07-21 12:52] LABS: % Iron Saturation 13.6 % (18-50); Ferritin 193.5 ng/ml (8-252)
[2020-07-21] MEDS: ONDANSETRON 4 MG/2 ML VIAL IV PRN (13:04)
[2020-07-21] MEDS ORDERED: PROMETHAZINE 25 MG/1 ML VIAL IM PRN (13:07)
[2020-07-21 13:34] LABS: Folate 22.13 NG/ML (5.38-24.0)
[2020-07-21] MEDS: ENOXAPARIN 60 MG/0.6 ML SYRINGE SUBCUT SCH (21:34)
[2020-07-22] MEDS: ACETAMINOPHEN 325 MG TABLET PO PRN (04:49)
[2020-07-22] MEDS: SODIUM CHLORIDE 0.9% 1,000 ML IV SCH ×3 (05:32→23:14)
[2020-07-22] MEDS ORDERED: MEPERIDINE 25 MG/1 ML VIAL IM ONE (06:05)
[2020-07-22] MEDS: ERTAPENEM 1,000 MG in SODIUM CHLORIDE 0.9% 100 ML IV SCH (10:33)
[2020-07-22] MEDS: SOTALOL 80 MG TABLET PO SCH ×2 (10:33→20:45)
[2020-07-22] MEDS: allopurinoL 300 MG TABLET PO SCH ×2 (10:33→20:45)
[2020-07-22] MEDS ORDERED: ONDANSETRON 4 MG/2 ML VIAL ONE (11:09)
[2020-07-22] MEDS ORDERED: fentaNYL 100 MCG/2 ML VIAL ONE (11:09)
[2020-07-22] MEDS ORDERED: SEVOFLURANE 1 UNIT/15 MINUTE INH ONE ×7 (11:09→15:03)
[2020-07-22] MEDS ORDERED: ROCURONIUM 50 MG/5 ML VIAL IV ONE ×4 (11:09→13:34)
[2020-07-22] MEDS ORDERED: ETOMIDATE 40 MG/20 ML VIAL IV ONE (11:09)
[2020-07-22] MEDS ORDERED: DEXMEDETOMIDINE 200 MCG/2 ML VIAL ONE (11:09)
[2020-07-22] MEDS ORDERED: HEPARIN/NACL 0.9% 2 UNITS/ML 1,000 UNIT/500 ML BAG IV ONE (11:39)
[2020-07-22] MEDS ORDERED: PHENYLEPHRINE DRIP 20 MG/250 ML PREMIX IV ONE (11:39)
[2020-07-22] MEDS ORDERED: MIDAZOLAM 2 MG/2 ML VIAL ONE ×2 (12:25→14:53)
[2020-07-22 13:18] LABS: ABG Base Excess -8.8 MMOL/L (-2.5-2.5); ABG HCO3 17.3 MMOL/L (20-26); ABG PCO2 35.2 MM HG (35-48); ABG PH 7.293 (7.35-7.45); Glucose Heart Surgery 99 MG/DL (74-106); Hematocrit Heart Surgery 25.6 PERCENT (37-47); Hemoglobin Heart Surgery 8.2 G/DL (12.0-16.0); Ionized Calcium Arterial 1.35 MMOL/L (1.21-1.46); PCO2 Patient Temp Arterial 31.9 MMHG; PH Patient Temp Arterial 7.321; Patient Temperature 35 CELCIUS; Potassium Heart/CVR 2.9 MMOL/L (3.5-5.1); Sodium Heart/CVR 142 MMOL/L (135-145)
[2020-07-22] MEDS ORDERED: ePHEDrine 50 MG/ML VIAL ONE (13:21)
[2020-07-22] MEDS ORDERED: SODIUM CHLORIDE 0.9% 1,000 ML IV PRN ×2 (13:25→14:11)
[2020-07-22] MEDS ORDERED: SODIUM BICARBONATE 50 MEQ/50 ML VIAL IV ONE ×2 (13:29→14:36)
[2020-07-22] MEDS ORDERED: SODIUM CHLORIDE 0.9% 1,000 ML IV ONE (13:50)
[2020-07-22] MEDS ORDERED: LIDOCAINE 2% 5 ML VIAL ONE (13:50)
[2020-07-22] MEDS ORDERED: LACTATED RINGERS 1,000 ML IV ONE (13:50)
[2020-07-22 14:24] LABS: Bilirubin,Urine Negative (Negative); Blood, Urine Small mg/dL (Negative); Glucose,Urine (UA) Negative (Negative); Hyaline Casts,Urine 4 /LPF (0-3); Ketones,Urine Negative (Negative); Mucus,Urine Occasional /LPF (Occasional); Nitrite,Urine Negative (Negative); Protein,Urine Negative; RBC,Urine 4 /HPF (0-4); Squamous Epithelial Cell,Urine Occasional /HPF (0-10); Urine Appearance CLEAR (Clear); Urine Color Yellow (Yellow); Urine Specific Gravity 1.012 (1.001-1.035); Urine Urobilinogen < 2.0 EU/DL (0.2-1.0)
[2020-07-22 14:27] LABS: ABG HCO3 18.8 MMOL/L (20-26); ABG Oxygen Saturation 99.6 % (95-100); ABG PCO2 37.4 MM HG (35-48); ABG PH 7.308 (7.35-7.45); Glucose Heart Surgery 135 MG/DL (74-106); Hematocrit Heart Surgery 34.5 PERCENT (37-47); Hemoglobin Heart Surgery 11.2 G/DL (12.0-16.0); Ionized Calcium Arterial 1.16 MMOL/L (1.21-1.46); PCO2 Patient Temp Arterial 33.9 MMHG; PH Patient Temp Arterial 7.336; Patient Temperature 35 CELCIUS; Potassium Heart/CVR 3.5 MMOL/L (3.5-5.1); Sodium Heart/CVR 142 MMOL/L (135-145)
[2020-07-22] MEDS ORDERED: CALCIUM CHLORIDE 1,000 MG/10 ML VIAL IV ONE (14:36)
[2020-07-22 15:37] LABS: Hemoglobin 10.2 GM/DL (12.0-16.0)
[2020-07-22 15:39] LABS: ABG Base Excess -2.1 MMOL/L (-2.5-2.5); ABG HCO3 22.7 MMOL/L (20-26); ABG Oxygen Saturation 99.6 % (95-100); ABG PCO2 38.7 MM HG (35-48); ABG PH 7.378 (7.35-7.45); ABG TCO2 20.7 MMOL/L (23-27)
[2020-07-22] MEDS: DEXTROSE 5% LACTATED RINGERS 1,000 ML IV SCH ×2 (16:31→23:14)
[2020-07-22] MEDS ORDERED: CALCIUM GLUCONATE 1,000 MG in SODIUM CHLORIDE 0.9% 100 ML IV ONE (19:19)
[2020-07-22] MEDS: ENOXAPARIN 60 MG/0.6 ML SYRINGE SUBCUT SCH (21:19)
[2020-07-22 23:11] LABS: Basophils % 0.2 % (0.0-0.8); Eosinophils # 0.2 10*3/uL (0.0-0.87); Eosinophils % 1.1 % (0.00-10.9); Hematocrit 44.3 VOL% (35.7-47.0); Hemoglobin 14.6 GM/DL (12.0-16.0); Immature Granulocytes Absolute 0.16 #; Lymphocytes # 1.7 10*3/uL (1.4-4.0); Lymphocytes % 10.3 % (21.3-54.2); Mean Corpuscular Volume 89.5 FL (87-102); Mean Platelet Volume 9.9 FL (9.6-12.0); Monocytes % 6.4 % (1.7-12.7); NRBC # 0.16 10*3/uL; Platelet Count 245 T/CUMM (130-400); Red Blood Count 4.95 MC/CUMM (3.8-5.5); Red Cell Distribution Width 17.2 % (9.3-17.3); White Blood Count 16.8 T/CUMM (4-12)
[2020-07-22 23:48] LABS: Alanine Aminotransferase < 9 U/L (13-56); Albumin 1.5 G/DL (3.4-5.0); Alkaline Phosphatase 52 U/L (45-117); Aspartate Amino Transferase 13 U/L (0-37); Blood Urea Nitrogen 20 MG/DL (7-18); Calcium 9.2 MG/DL (8.5-10.1); Carbon Dioxide 21 MMOL/L (21-32); Estimated Glom Filtration Rate 43 ML/MIN; Glucose 169 MG/DL (74-106); Osmolality,Calculated 300.3 MOS/KG (273-304); Potassium 2.9 MMOL/L (3.5-5.1); Sodium 148 MMOL/L (136-145); Total Protein 4.5 G/DL (6.4-8.2)
[2020-07-23] MEDS: MORPHINE 4 MG/1 ML VIAL IV PRN ×2 (00:23→05:17)
[2020-07-23] MEDS: DEXTROSE 5% LACTATED RINGERS 1,000 ML IV SCH ×4 (00:45→17:37)
[2020-07-23] MEDS: PHENYLEPHRINE DRIP 40 MG/250 ML PREMIX IV PRN ×3 (02:18→17:38)
[2020-07-23 04:13] LABS: Basophils # 0.1 10*3/uL (0.0-0.2); Basophils % 0.2 % (0.0-0.8); Eosinophils # 0.2 10*3/uL (0.0-0.87); Eosinophils % 0.7 % (0.00-10.9); Hematocrit 42.9 VOL% (35.7-47.0); Hemoglobin 14.3 GM/DL (12.0-16.0); Immature Granulocytes % 1.4 %; Immature Granulocytes Absolute 0.29 #; Lymphocytes # 1.7 10*3/uL (1.4-4.0); Lymphocytes % 8.2 % (21.3-54.2); Mean Corpuscular HGB Conc 33.3 GM/DL (32-36); Mean Corpuscular Volume 88.3 FL (87-102); Mean Platelet Volume 10.1 FL (9.6-12.0); Monocytes % 7.7 % (1.7-12.7); NRBC # 0.22 10*3/uL; Neutrophils % 81.8 % (38.7-73.9); Platelet Count 271 T/CUMM (130-400); Red Blood Count 4.86 MC/CUMM (3.8-5.5); Red Cell Distribution Width 17.7 % (9.3-17.3); White Blood Count 20.5 T/CUMM (4-12)
[2020-07-23 04:34] LABS: Eosinophils 1 % (0-10); Lymphocytes 5 % (20-55); Platelet Estimate Adequate; Segmented Neutrophils 90 % (50-85); Total Cells Counted 100
[2020-07-23] MEDS ORDERED: POTASSIUM CHLORIDE RIDER 10 MEQ in PREMIX 1 EACH IV PRN (04:44)
[2020-07-23 05:15] LABS: Albumin 1.5 G/DL (3.4-5.0); Bilirubin,Total 0.4 MG/DL (0.2-1.0); Calcium 8.6 MG/DL (8.5-10.1); Osmolality,Calculated 300.1 MOS/KG (273-304); Potassium 3.6 MMOL/L (3.5-5.1); Total Protein 3.8 G/DL (6.4-8.2)
[2020-07-23] MEDS: POTASSIUM CHLORIDE RIDER 20 MEQ in PREMIX 1 EACH IV PRN (05:27)
[2020-07-23] MEDS: SOTALOL 80 MG TABLET PO SCH ×2 (11:18→20:55)
[2020-07-23 11:40] LABS: ABG HCO3 20.4 MMOL/L (20-26); ABG Oxygen Saturation 99.8 % (95-100); ABG PCO2 39.1 MM HG (35-48); ABG TCO2 17.8 MMOL/L (23-27)
[2020-07-23] MEDS: allopurinoL 300 MG TABLET PO SCH ×2 (11:49→20:55)
[2020-07-23] MEDS: ERTAPENEM 1,000 MG in SODIUM CHLORIDE 0.9% 100 ML IV SCH (11:58)
[2020-07-23] MEDS ORDERED: FUROSEMIDE 40 MG/4 ML VIAL IV ONE (12:52)
[2020-07-23] MEDS: ENOXAPARIN 60 MG/0.6 ML SYRINGE SUBCUT SCH (21:57)
[2020-07-24] MEDS: DEXTROSE 5% LACTATED RINGERS 1,000 ML IV SCH ×4 (00:43→22:19)
[2020-07-24] MEDS: SODIUM CHLORIDE 0.9% 1,000 ML IV SCH (00:43)
[2020-07-24] MEDS: MORPHINE 4 MG/1 ML VIAL IV PRN ×3 (01:50→22:40)
[2020-07-24 04:24] LABS: Basophils # 0.1 10*3/uL (0.0-0.2); Basophils % 0.2 % (0.0-0.8); Eosinophils # 0.1 10*3/uL (0.0-0.87); Eosinophils % 0.4 % (0.00-10.9); Hematocrit 39.3 VOL% (35.7-47.0); Hemoglobin 12.9 GM/DL (12.0-16.0); Immature Granulocytes % 1.4 %; Immature Granulocytes Absolute 0.35 #; Lymphocytes # 2.4 10*3/uL (1.4-4.0); Mean Corpuscular HGB Conc 32.8 GM/DL (32-36); Mean Corpuscular Volume 89.9 FL (87-102); Mean Platelet Volume 9.9 FL (9.6-12.0); Monocytes % 8.2 % (1.7-12.7); NRBC # 0.12 10*3/uL; Neutrophils % 79.8 % (38.7-73.9); Platelet Count 273 T/CUMM (130-400); Red Blood Count 4.37 MC/CUMM (3.8-5.5); Red Cell Distribution Width 18.1 % (9.3-17.3); White Blood Count 24.2 T/CUMM (4-12)
[2020-07-24 04:42] LABS: Hypochromasia Slight; Lymphocytes 12 % (20-55); Microcytosis Slight; Ovalocytes Slight; Platelet Estimate Adequate; Segmented Neutrophils 82 % (50-85); Total Cells Counted 100
[2020-07-24 04:49] LABS: Calcium 8.7 MG/DL (8.5-10.1); Osmolality,Calculated 295.4 MOS/KG (273-304); Potassium 3.8 MMOL/L (3.5-5.1)
[2020-07-24] MEDS: PHENYLEPHRINE DRIP 40 MG/250 ML PREMIX IV PRN ×3 (06:12→22:19)
[2020-07-24] MEDS: allopurinoL 300 MG TABLET PO SCH ×2 (09:45→21:20)
[2020-07-24] MEDS: SOTALOL 80 MG TABLET PO SCH ×2 (09:45→21:19)
[2020-07-24] MEDS: ERTAPENEM 1,000 MG in SODIUM CHLORIDE 0.9% 100 ML IV SCH (11:30)
[2020-07-24] MEDS ORDERED: ALBUMIN 5% 12.5 GM/250 ML VIAL IV ONE (16:04)
[2020-07-24] MEDS: ENOXAPARIN 60 MG/0.6 ML SYRINGE SUBCUT SCH (21:20)
[2020-07-25] MEDS: MORPHINE 4 MG/1 ML VIAL IV PRN ×3 (02:30→21:07)
[2020-07-25 05:20] LABS: Alanine Aminotransferase < 6 U/L (13-56); Albumin 1.7 G/DL (3.4-5.0); Alkaline Phosphatase 51 U/L (45-117); Aspartate Amino Transferase 14 U/L (0-37); Bilirubin,Total < 0.39 MG/DL (0.2-1.0); Blood Urea Nitrogen 24 MG/DL (7-18); Calcium 8.4 MG/DL (8.5-10.1); Carbon Dioxide 24 MMOL/L (21-32); Estimated Glom Filtration Rate 32 ML/MIN; Glucose 108 MG/DL (74-106); Osmolality,Calculated 298.3 MOS/KG (273-304); Potassium 4.1 MMOL/L (3.5-5.1); Sodium 148 MMOL/L (136-145); Total Protein 4.6 G/DL (6.4-8.2)
[2020-07-25 05:26] LABS: Basophils % 0.1 % (0.0-0.8); Eosinophils # 0.3 10*3/uL (0.0-0.87); Eosinophils % 1.8 % (0.00-10.9); Hematocrit 33.9 VOL% (35.7-47.0); Immature Granulocytes Absolute 0.17 #; Lymphocytes % 11.7 % (21.3-54.2); Mean Corpuscular HGB Conc 31.6 GM/DL (32-36); Mean Corpuscular Volume 92.6 FL (87-102); Mean Platelet Volume 11.1 FL (9.6-12.0); Monocytes % 7.3 % (1.7-12.7); Neutrophils % 78.1 % (38.7-73.9); Platelet Count 228 T/CUMM (130-400); Red Blood Count 3.66 MC/CUMM (3.8-5.5); Red Cell Distribution Width 18.2 % (9.3-17.3)
[2020-07-25 05:33] LABS: Hemoglobin 10.7 GM/DL (12.0-16.0); White Blood Count 16.7 T/CUMM (4-12)
[2020-07-25] MEDS ORDERED: MAGNESIUM SULF RIDER 2 GM/50 ML PREMIX IV PRN (05:45)
[2020-07-25] MEDS ORDERED: MAGNESIUM SULF RIDER 4 GM/100 ML PREMIX IV PRN (05:45)
[2020-07-25] MEDS: DEXTROSE 5% LACTATED RINGERS 1,000 ML IV SCH ×4 (07:59→21:50)
[2020-07-25] MEDS: ERTAPENEM 1,000 MG in SODIUM CHLORIDE 0.9% 100 ML IV SCH (11:17)
[2020-07-25] MEDS ORDERED: DEXMEDETOMIDINE 200 MCG/2 ML VIAL ONE (12:34)
[2020-07-25] MEDS ORDERED: fentaNYL 100 MCG/2 ML VIAL ONE (12:35)
[2020-07-25] MEDS ORDERED: PHENYLEPHRINE 10 MG/1 ML VIAL IV ONE (13:03)
[2020-07-25] MEDS ORDERED: LIDOCAINE 1%/EPI INJ 20 ML VIAL ONE (13:10)
[2020-07-25] MEDS ORDERED: BUPIVACAINE MPF 0.25% 30 ML VIAL ONE (13:10)
[2020-07-25] MEDS ORDERED: HEPARIN/NACL 0.9% 2 UNITS/ML 1,000 UNIT/500 ML BAG IV ONE (15:08)
[2020-07-25] MEDS: allopurinoL 300 MG TABLET PO SCH ×2 (16:37→20:58)
[2020-07-25] MEDS: SOTALOL 80 MG TABLET PO SCH ×2 (16:37→20:58)
[2020-07-25] MEDS: LINEZOLID 600 MG TABLET PO SCH ×2 (16:37→21:00)
[2020-07-25] MEDS: ENOXAPARIN 60 MG/0.6 ML SYRINGE SUBCUT SCH (21:10)
[2020-07-26] MEDS: DEXTROSE 5% LACTATED RINGERS 1,000 ML IV SCH ×5 (00:36→14:15)
[2020-07-26] MEDS: MORPHINE 4 MG/1 ML VIAL IV PRN ×3 (03:22→23:47)
[2020-07-26 05:20] LABS: Basophils % 0.1 % (0.0-0.8); Eosinophils # 0.2 10*3/uL (0.0-0.87); Eosinophils % 1.6 % (0.00-10.9); Hematocrit 32.5 VOL% (35.7-47.0); Hemoglobin 10.5 GM/DL (12.0-16.0); Immature Granulocytes % 0.9 %; Immature Granulocytes Absolute 0.14 #; Lymphocytes # 1.2 10*3/uL (1.4-4.0); Lymphocytes % 8.3 % (21.3-54.2); Mean Corpuscular HGB Conc 32.3 GM/DL (32-36); Mean Corpuscular Volume 91.8 FL (87-102); Mean Platelet Volume 10.9 FL (9.6-12.0); Monocytes % 5.2 % (1.7-12.7); NRBC # 0.08 10*3/uL; Neutrophils % 83.9 % (38.7-73.9); Platelet Count 183 T/CUMM (130-400); Red Blood Count 3.54 MC/CUMM (3.8-5.5); Red Cell Distribution Width 18.6 % (9.3-17.3); White Blood Count 14.9 T/CUMM (4-12)
[2020-07-26 05:39] LABS: Alanine Aminotransferase < 9 U/L (13-56); Albumin 1.5 G/DL (3.4-5.0); Alkaline Phosphatase 54 U/L (45-117); Aspartate Amino Transferase 26 U/L (0-37); Blood Urea Nitrogen 22 MG/DL (7-18); Calcium 8.5 MG/DL (8.5-10.1); Carbon Dioxide 25 MMOL/L (21-32); Estimated Glom Filtration Rate 43 ML/MIN; Glucose 100 MG/DL (74-106); Osmolality,Calculated 298.1 MOS/KG (273-304); Sodium 149 MMOL/L (136-145); Total Protein 4.6 G/DL (6.4-8.2)
[2020-07-26] MEDS: SOTALOL 80 MG TABLET PO SCH ×2 (08:40→20:48)
[2020-07-26] MEDS: LINEZOLID 600 MG TABLET PO SCH ×2 (08:40→20:49)
[2020-07-26] MEDS: allopurinoL 300 MG TABLET PO SCH ×2 (08:41→20:48)
[2020-07-26] MEDS ORDERED: FUROSEMIDE 40 MG/4 ML VIAL IV ONE (09:21)
[2020-07-26] MEDS: ERTAPENEM 1,000 MG in SODIUM CHLORIDE 0.9% 100 ML IV SCH (10:30)
[2020-07-26] MEDS: FAT EMULSION 20% 250 ML IV SCH (13:13)
[2020-07-26] MEDS: LEVALBUTEROL 1.25 MG/3 ML NEB RESP TX SCH (15:18)
[2020-07-26] MEDS ORDERED: ZINC/COPPER/MANGANESE/SELENIUM 1 ML, MULTIVITAMIN INJ 10 ML in AMINO ACIDS/DEXT/LYTES 5... IV SCH (17:00)
[2020-07-26] MEDS: ENOXAPARIN 60 MG/0.6 ML SYRINGE SUBCUT SCH (23:18)
[2020-07-27] MEDS: LEVALBUTEROL 1.25 MG/3 ML NEB RESP TX SCH ×3 (00:58→15:15)
[2020-07-27 04:52] LABS: Basophils % 0.1 % (0.0-0.8); Eosinophils # 0.2 10*3/uL (0.0-0.87); Eosinophils % 1.2 % (0.00-10.9); Hematocrit 32.9 VOL% (35.7-47.0); Hemoglobin 10.2 GM/DL (12.0-16.0); Immature Granulocytes % 1.1 %; Immature Granulocytes Absolute 0.17 #; Lymphocytes # 1.3 10*3/uL (1.4-4.0); Lymphocytes % 8.3 % (21.3-54.2); Mean Corpuscular Volume 93.2 FL (87-102); Mean Platelet Volume 10.6 FL (9.6-12.0); Monocytes % 4.6 % (1.7-12.7); NRBC # 0.16 10*3/uL; Neutrophils % 84.7 % (38.7-73.9); Platelet Count 182 T/CUMM (130-400); Red Blood Count 3.53 MC/CUMM (3.8-5.5); Red Cell Distribution Width 18.6 % (9.3-17.3); White Blood Count 15.5 T/CUMM (4-12)
[2020-07-27 05:16] LABS: Alanine Aminotransferase < 9 U/L (13-56); Albumin 1.5 G/DL (3.4-5.0); Alkaline Phosphatase 60 U/L (45-117); Aspartate Amino Transferase 18 U/L (0-37); Bilirubin,Total < 0.39 MG/DL (0.2-1.0); Blood Urea Nitrogen 21 MG/DL (7-18); Calcium 8.3 MG/DL (8.5-10.1); Carbon Dioxide 30 MMOL/L (21-32); Estimated Glom Filtration Rate 44 ML/MIN; Glucose 157 MG/DL (74-106); Potassium 2.9 MMOL/L (3.5-5.1); Sodium 150 MMOL/L (136-145); Total Protein 4.5 G/DL (6.4-8.2)
[2020-07-27] MEDS: POTASSIUM CHLORIDE RIDER 20 MEQ in PREMIX 1 EACH IV PRN ×2 (05:38→06:41)
[2020-07-27] MEDS: DEXTROSE 5% LACTATED RINGERS 1,000 ML IV SCH ×2 (06:42→19:33)
[2020-07-27] MEDS: allopurinoL 300 MG TABLET PO SCH ×2 (09:28→20:25)
[2020-07-27] MEDS: SOTALOL 80 MG TABLET PO SCH ×2 (09:28→20:25)
[2020-07-27] MEDS: LINEZOLID 600 MG TABLET PO SCH ×2 (09:29→20:25)
[2020-07-27] MEDS: ONDANSETRON 4 MG/2 ML VIAL IV PRN ×2 (09:48→21:38)
[2020-07-27] MEDS: PHENYLEPHRINE DRIP 40 MG/250 ML PREMIX IV PRN (14:25)
[2020-07-27] MEDS: HYDROCORTISONE 100 MG VIAL IV SCH ×2 (14:44→22:01)
[2020-07-27] MEDS: FAT EMULSION 20% 250 ML IV SCH (15:16)
[2020-07-27] MEDS: ZINC/COPPER/MANGANESE/SELENIUM 1 ML, MULTIVITAMIN INJ 10 ML in AMINO ACIDS/DEXT/LYTES 5... IV SCH (17:22)
[2020-07-27] MEDS ORDERED: LEVOFLOXACIN INJ 750 MG/150 ML PREMIX IV SCH (17:30)
[2020-07-27] MEDS: metroNIDAZOLE INJ 500 MG/100 ML PREMIX IV SCH ×2 (17:51→23:36)
[2020-07-27 18:43] LABS: Hematocrit 31.5 VOL% (35.7-47.0); Hemoglobin 9.9 GM/DL (12.0-16.0)
[2020-07-27] MEDS: PANTOPRAZOLE 40 MG VIAL IV SCH (21:09)
[2020-07-27] MEDS: ENOXAPARIN 60 MG/0.6 ML SYRINGE SUBCUT SCH (21:15)
[2020-07-27 21:36] LABS: ABG Base Excess 0.1 MMOL/L (-2.5-2.5); ABG HCO3 25.5 MMOL/L (20-26); ABG Oxygen Saturation 94.1 % (95-100); ABG PCO2 44.8 MM HG (35-48); ABG PH 7.373 (7.35-7.45); ABG PO2 69.3 MM HG (80-95); ABG TCO2 26.9 MMOL/L (23-27)
[2020-07-27 21:39] LABS: Basophils % 0.1 % (0.0-0.8); Eosinophils % 0.1 % (0.00-10.9); Hematocrit 29.1 VOL% (35.7-47.0); Hemoglobin 9.4 GM/DL (12.0-16.0); Immature Granulocytes % 1.2 %; Immature Granulocytes Absolute 0.23 #; Lymphocytes # 0.7 10*3/uL (1.4-4.0); Lymphocytes % 3.3 % (21.3-54.2); Mean Corpuscular HGB Conc 32.3 GM/DL (32-36); Mean Corpuscular Volume 92.4 FL (87-102); Mean Platelet Volume 10.5 FL (9.6-12.0); NRBC # 0.22 10*3/uL; Neutrophils % 93.3 % (38.7-73.9); Red Blood Count 3.15 MC/CUMM (3.8-5.5); Red Cell Distribution Width 18.6 % (9.3-17.3)
[2020-07-27 21:40] LABS: Platelet Count 220 T/CUMM (130-400)
[2020-07-27 21:54] LABS: Alanine Aminotransferase < 9 U/L (13-56); Albumin 1.3 G/DL (3.4-5.0); Alkaline Phosphatase 57 U/L (45-117); Aspartate Amino Transferase 16 U/L (0-37); Bilirubin,Total < 0.39 MG/DL (0.2-1.0); Blood Urea Nitrogen 26 MG/DL (7-18); Calcium 7.9 MG/DL (8.5-10.1); Carbon Dioxide 27 MMOL/L (21-32); Estimated Glom Filtration Rate 34 ML/MIN; Glucose 149 MG/DL (74-106); Osmolality,Calculated 301.3 MOS/KG (273-304); Potassium 4.1 MMOL/L (3.5-5.1); Sodium 148 MMOL/L (136-145); Total Protein 4.1 G/DL (6.4-8.2)
[2020-07-27 22:30] LABS: Nucleated Red Blood Cells 5 (0-5); Platelet Estimate Normal; Segmented Neutrophils 99 % (50-85); Total Cells Counted 100
[2020-07-27 22:31] LABS: Hypochromasia Slight
[2020-07-28] MEDS: LEVALBUTEROL 1.25 MG/3 ML NEB RESP TX SCH ×4 (01:02→23:30)
[2020-07-28 05:00] LABS: Basophils % 0.1 % (0.0-0.8); Hematocrit 28.1 VOL% (35.7-47.0); Hemoglobin 8.9 GM/DL (12.0-16.0); Immature Granulocytes Absolute 0.21 #; Lymphocytes # 1.1 10*3/uL (1.4-4.0); Lymphocytes % 4.8 % (21.3-54.2); Mean Corpuscular HGB Conc 31.7 GM/DL (32-36); Mean Corpuscular Volume 93.4 FL (87-102); Mean Platelet Volume 10.9 FL (9.6-12.0); Monocytes % 1.7 % (1.7-12.7); NRBC # 0.19 10*3/uL; Neutrophils % 92.4 % (38.7-73.9); Platelet Count 208 T/CUMM (130-400); Red Blood Count 3.01 MC/CUMM (3.8-5.5); Red Cell Distribution Width 18.6 % (9.3-17.3); White Blood Count 21.9 T/CUMM (4-12)
[2020-07-28 05:24] LABS: Alanine Aminotransferase < 6 U/L (13-56); Albumin 1.3 G/DL (3.4-5.0); Alkaline Phosphatase 69 U/L (45-117); Aspartate Amino Transferase 13 U/L (0-37); Blood Urea Nitrogen 27 MG/DL (7-18); Calcium 8.3 MG/DL (8.5-10.1); Carbon Dioxide 28 MMOL/L (21-32); Estimated Glom Filtration Rate 34 ML/MIN; Glucose 153 MG/DL (74-106); Osmolality,Calculated 301.3 MOS/KG (273-304); Potassium 4.2 MMOL/L (3.5-5.1); Sodium 148 MMOL/L (136-145); Total Protein 4.2 G/DL (6.4-8.2)
[2020-07-28] MEDS: PHENYLEPHRINE DRIP 40 MG/250 ML PREMIX IV PRN ×2 (05:35→17:30)
[2020-07-28] MEDS: metroNIDAZOLE INJ 500 MG/100 ML PREMIX IV SCH ×4 (05:38→23:57)
[2020-07-28] MEDS: HYDROCORTISONE 100 MG VIAL IV SCH ×3 (05:38→22:31)
[2020-07-28 05:40] LABS: Band Neutrophils 2 % (0-10); Lymphocytes 4 % (20-55); Nucleated Red Blood Cells 1 (0-5); Platelet Estimate Normal; Segmented Neutrophils 92 % (50-85); Total Cells Counted 100
[2020-07-28 05:41] LABS: Hypochromasia Slight
[2020-07-28 07:50] LABS: ABG Base Excess 0.7 MMOL/L (-2.5-2.5); ABG Oxygen Saturation 94.8 % (95-100); ABG PCO2 48.5 MM HG (35-48); ABG PH 7.349 (7.35-7.45); ABG PO2 73.3 MM HG (80-95); ABG TCO2 24.7 MMOL/L (23-27)
[2020-07-28] MEDS: allopurinoL 300 MG TABLET PO SCH ×2 (09:33→21:16)
[2020-07-28] MEDS: SOTALOL 80 MG TABLET PO SCH ×2 (09:33→21:15)
[2020-07-28] MEDS: LINEZOLID 600 MG TABLET PO SCH (09:33)
[2020-07-28] MEDS: CEFEPIME 1,000 MG in SODIUM CHLORIDE 0.9% 100 ML IV SCH ×2 (09:35→17:00)
[2020-07-28] MEDS: PANTOPRAZOLE 40 MG VIAL IV SCH ×2 (09:37→21:18)
[2020-07-28] MEDS: MORPHINE 4 MG/1 ML VIAL IV PRN ×2 (09:39→13:55)
[2020-07-28] MEDS: HEPARIN/NACL 0.9% 2 UNITS/ML 1,000 UNIT/500 ML BAG IV SCH (13:41)
[2020-07-28] MEDS: DEXTROSE 5% LACTATED RINGERS 1,000 ML IV SCH ×2 (15:10→22:24)
[2020-07-28] MEDS: FAT EMULSION 20% 250 ML IV SCH (15:14)
[2020-07-28] MEDS: LINEZOLID INJ 600 MG/300 ML PREMIX IV SCH (15:15)
[2020-07-28] MEDS: FUROSEMIDE 40 MG/4 ML VIAL IV SCH (15:17)
[2020-07-28] MEDS: ZINC/COPPER/MANGANESE/SELENIUM 1 ML, MULTIVITAMIN INJ 10 ML in AMINO ACIDS/DEXT/LYTES 5... IV SCH (17:28)
[2020-07-28] MEDS: INSULIN REGULAR 100 UNIT/ML SUBCUT SCH (19:47)
[2020-07-28] MEDS: ENOXAPARIN 60 MG/0.6 ML SYRINGE SUBCUT SCH (22:31)
[2020-07-29] MEDS: CEFEPIME 1,000 MG in SODIUM CHLORIDE 0.9% 100 ML IV SCH ×3 (00:58→17:34)
[2020-07-29] MEDS: MORPHINE 4 MG/1 ML VIAL IV PRN ×2 (01:42→19:32)
[2020-07-29] MEDS: LINEZOLID INJ 600 MG/300 ML PREMIX IV SCH ×2 (02:59→14:10)
[2020-07-29 04:51] LABS: ABG Base Excess 1.5 MMOL/L (-2.5-2.5); ABG HCO3 25.8 MMOL/L (20-26); ABG Oxygen Saturation 98.2 % (95-100); ABG PCO2 48.4 MM HG (35-48); ABG PH 7.361 (7.35-7.45); ABG PO2 99.3 MM HG (80-95); ABG TCO2 25.5 MMOL/L (23-27)
[2020-07-29] MEDS: INSULIN REGULAR 100 UNIT/ML SUBCUT SCH ×6 (04:53→20:20)
[2020-07-29] MEDS: metroNIDAZOLE INJ 500 MG/100 ML PREMIX IV SCH ×3 (04:54→17:33)
[2020-07-29 05:02] LABS: Basophils % 0.1 % (0.0-0.8); Hemoglobin 7.9 GM/DL (12.0-16.0); Immature Granulocytes % 1.9 %; Immature Granulocytes Absolute 0.37 #; Lymphocytes # 1.3 10*3/uL (1.4-4.0); Lymphocytes % 6.7 % (21.3-54.2); Mean Corpuscular HGB Conc 30.4 GM/DL (32-36); Mean Corpuscular Volume 95.6 FL (87-102); Mean Platelet Volume 10.9 FL (9.6-12.0); Monocytes % 3.9 % (1.7-12.7); NRBC # 0.11 10*3/uL; Neutrophils % 87.4 % (38.7-73.9); Platelet Count 192 T/CUMM (130-400); Red Blood Count 2.72 MC/CUMM (3.8-5.5); Red Cell Distribution Width 18.5 % (9.3-17.3); White Blood Count 19.3 T/CUMM (4-12)
[2020-07-29 05:19] LABS: Alanine Aminotransferase < 6 U/L (13-56); Albumin 1.3 G/DL (3.4-5.0); Alkaline Phosphatase 61 U/L (45-117); Aspartate Amino Transferase 22 U/L (0-37); Blood Urea Nitrogen 33 MG/DL (7-18); Carbon Dioxide 28 MMOL/L (21-32); Estimated Glom Filtration Rate 34 ML/MIN; Glucose 198 MG/DL (74-106); Osmolality,Calculated 306.3 MOS/KG (273-304); Potassium 3.9 MMOL/L (3.5-5.1); Sodium 148 MMOL/L (136-145); Total Protein 4.2 G/DL (6.4-8.2)
[2020-07-29] MEDS: POTASSIUM CHLORIDE RIDER 20 MEQ in PREMIX 1 EACH IV PRN (06:30)
[2020-07-29] MEDS: HYDROCORTISONE 100 MG VIAL IV SCH ×3 (06:35→21:20)
[2020-07-29] MEDS: LEVALBUTEROL 1.25 MG/3 ML NEB RESP TX SCH ×3 (06:58→23:19)
[2020-07-29] MEDS: SOTALOL 80 MG TABLET PO SCH ×2 (08:08→20:20)
[2020-07-29] MEDS: PANTOPRAZOLE 40 MG VIAL IV SCH ×2 (08:09→20:20)
[2020-07-29] MEDS: FUROSEMIDE 40 MG/4 ML VIAL IV SCH (08:09)
[2020-07-29] MEDS: allopurinoL 300 MG TABLET PO SCH ×2 (08:10→20:20)
[2020-07-29] MEDS: DEXTROSE 5% LACTATED RINGERS 1,000 ML IV SCH (08:42)
[2020-07-29] MEDS: HEPARIN/NACL 0.9% 2 UNITS/ML 1,000 UNIT/500 ML BAG IV SCH (13:21)
[2020-07-29] MEDS: FAT EMULSION 20% 250 ML IV SCH (13:57)
[2020-07-29] MEDS: ZINC/COPPER/MANGANESE/SELENIUM 1 ML, MULTIVITAMIN INJ 10 ML in AMINO ACIDS/DEXT/LYTES 5... IV SCH (17:33)
[2020-07-29] MEDS: ENOXAPARIN 60 MG/0.6 ML SYRINGE SUBCUT SCH (21:20)
[2020-07-30] MEDS: metroNIDAZOLE INJ 500 MG/100 ML PREMIX IV SCH ×4 (00:31→18:48)
[2020-07-30] MEDS: INSULIN REGULAR 100 UNIT/ML SUBCUT SCH ×7 (00:31→23:20)
[2020-07-30] MEDS: DEXTROSE 5% LACTATED RINGERS 1,000 ML IV SCH ×2 (01:20→01:41)
[2020-07-30] MEDS: CEFEPIME 1,000 MG in SODIUM CHLORIDE 0.9% 100 ML IV SCH ×3 (01:40→17:50)
[2020-07-30] MEDS: LINEZOLID INJ 600 MG/300 ML PREMIX IV SCH ×2 (02:01→16:23)
[2020-07-30] MEDS: MORPHINE 4 MG/1 ML VIAL IV PRN ×2 (02:41→22:15)
[2020-07-30 03:56] LABS: Basophils % 0.1 % (0.0-0.8); Hematocrit 24.6 VOL% (35.7-47.0); Hemoglobin 7.5 GM/DL (12.0-16.0); Immature Granulocytes % 1.7 %; Immature Granulocytes Absolute 0.16 #; Lymphocytes # 0.9 10*3/uL (1.4-4.0); Lymphocytes % 9.5 % (21.3-54.2); Mean Corpuscular HGB Conc 30.5 GM/DL (32-36); Mean Corpuscular Volume 95.3 FL (87-102); Mean Platelet Volume 10.4 FL (9.6-12.0); Monocytes % 5.1 % (1.7-12.7); NRBC # 0.06 10*3/uL; Neutrophils % 83.6 % (38.7-73.9); Platelet Count 128 T/CUMM (130-400); Red Blood Count 2.58 MC/CUMM (3.8-5.5); Red Cell Distribution Width 18.4 % (9.3-17.3); White Blood Count 9.5 T/CUMM (4-12)
[2020-07-30 04:12] LABS: Alanine Aminotransferase < 9 U/L (13-56); Albumin 1.4 G/DL (3.4-5.0); Alkaline Phosphatase 62 U/L (45-117); Aspartate Amino Transferase 14 U/L (0-37); Bilirubin,Indirect 0.2 MG/DL (0.0-1.0); Blood Urea Nitrogen 39 MG/DL (7-18); Calcium 7.6 MG/DL (8.5-10.1); Carbon Dioxide 29 MMOL/L (21-32); Estimated Glom Filtration Rate 33 ML/MIN; Glucose 209 MG/DL (74-106); Osmolality,Calculated 304.6 MOS/KG (273-304); Potassium 3.8 MMOL/L (3.5-5.1); Sodium 146 MMOL/L (136-145); Total Protein 4.2 G/DL (6.4-8.2)
[2020-07-30] MEDS: HYDROCORTISONE 100 MG VIAL IV SCH ×2 (05:07→16:23)
[2020-07-30] MEDS: POTASSIUM CHLORIDE RIDER 20 MEQ in PREMIX 1 EACH IV PRN (05:07)
[2020-07-30] MEDS: LEVALBUTEROL 1.25 MG/3 ML NEB RESP TX SCH ×3 (06:55→23:45)
[2020-07-30] MEDS: SOTALOL 80 MG TABLET PO SCH ×2 (08:14→21:01)
[2020-07-30] MEDS: PANTOPRAZOLE 40 MG VIAL IV SCH ×2 (08:15→20:25)
[2020-07-30] MEDS: allopurinoL 300 MG TABLET PO SCH ×2 (08:15→21:01)
[2020-07-30] MEDS: FAT EMULSION 20% 250 ML IV SCH (15:34)
[2020-07-30] MEDS ORDERED: TUBERCULIN SKIN TEST 0.1 ML SYRINGE INTRADERM ONE (17:00)
[2020-07-30] MEDS: ENOXAPARIN 60 MG/0.6 ML SYRINGE SUBCUT SCH (20:25)
[2020-07-31] MEDS: metroNIDAZOLE INJ 500 MG/100 ML PREMIX IV SCH ×5 (00:30→23:55)
[2020-07-31] MEDS: HYDROCORTISONE 100 MG VIAL IV SCH ×3 (01:17→21:16)
[2020-07-31] MEDS: CEFEPIME 1,000 MG in SODIUM CHLORIDE 0.9% 100 ML IV SCH ×3 (01:19→17:45)
[2020-07-31] MEDS: ZINC IV SCH ×2 (01:21→21:04)
[2020-07-31] MEDS: COPPER IV SCH ×2 (01:21→21:04)
[2020-07-31] MEDS: LYTES IV SCH ×2 (01:21→21:04)
[2020-07-31] MEDS: SELENIUM IV SCH ×2 (01:21→21:04)
[2020-07-31] MEDS: DEXT IV SCH ×2 (01:21→21:04)
[2020-07-31] MEDS: MANGANESE IV SCH ×2 (01:21→21:04)
[2020-07-31] MEDS: AMINO ACIDS IV SCH ×2 (01:21→21:04)
[2020-07-31] MEDS: LINEZOLID INJ 600 MG/300 ML PREMIX IV SCH ×2 (02:44→14:59)
[2020-07-31] MEDS: INSULIN REGULAR 100 UNIT/ML SUBCUT SCH ×5 (05:12→21:09)
[2020-07-31 06:00] LABS: Basophils % 0.1 % (0.0-0.8); Hemoglobin 7.6 GM/DL (12.0-16.0); Immature Granulocytes % 1.8 %; Immature Granulocytes Absolute 0.16 #; Lymphocytes # 0.7 10*3/uL (1.4-4.0); Lymphocytes % 8.4 % (21.3-54.2); Mean Corpuscular HGB Conc 31.7 GM/DL (32-36); Mean Corpuscular Volume 93.4 FL (87-102); Monocytes % 4.5 % (1.7-12.7); NRBC # 0.05 10*3/uL; Neutrophils % 85.2 % (38.7-73.9); Platelet Count 128 T/CUMM (130-400); Red Blood Count 2.57 MC/CUMM (3.8-5.5); Red Cell Distribution Width 17.8 % (9.3-17.3); White Blood Count 8.7 T/CUMM (4-12)
[2020-07-31 06:19] LABS: Calcium 7.6 MG/DL (8.5-10.1); Osmolality,Calculated 302.8 MOS/KG (273-304); Potassium 4.5 MMOL/L (3.5-5.1)
[2020-07-31] MEDS: LEVALBUTEROL 1.25 MG/3 ML NEB RESP TX SCH ×2 (07:42→14:15)
[2020-07-31] MEDS: PANTOPRAZOLE 40 MG VIAL IV SCH ×2 (09:01→21:16)
[2020-07-31] MEDS: FERRIC GLUCONATE COMPLEX 125 MG in SODIUM CHLORIDE 0.9% 100 ML IV SCH (11:19)
[2020-07-31] MEDS: FAT EMULSION 20% 250 ML IV SCH (14:43)
[2020-07-31] MEDS: allopurinoL 300 MG TABLET PO SCH ×2 (19:04→21:24)
[2020-07-31] MEDS: SOTALOL 80 MG TABLET PO SCH ×2 (19:04→21:24)
[2020-07-31] MEDS: ENOXAPARIN 60 MG/0.6 ML SYRINGE SUBCUT SCH (21:10)
[2020-07-31] MEDS: MORPHINE 4 MG/1 ML VIAL IV PRN (21:15)
[2020-08-01] MEDS: INSULIN REGULAR 100 UNIT/ML SUBCUT SCH ×6 (00:09→19:43)
[2020-08-01] MEDS: CEFEPIME 1,000 MG in SODIUM CHLORIDE 0.9% 100 ML IV SCH ×3 (01:14→16:44)
[2020-08-01] MEDS: LEVALBUTEROL 1.25 MG/3 ML NEB RESP TX SCH ×4 (02:03→22:36)
[2020-08-01] MEDS: LINEZOLID INJ 600 MG/300 ML PREMIX IV SCH ×2 (02:28→14:31)
[2020-08-01] MEDS: metroNIDAZOLE INJ 500 MG/100 ML PREMIX IV SCH ×4 (04:29→23:42)
[2020-08-01 06:49] LABS: Osmolality,Calculated 303.7 MOS/KG (273-304); Potassium 4.5 MMOL/L (3.5-5.1)
[2020-08-01] MEDS: HYDROCORTISONE 100 MG VIAL IV SCH ×2 (08:32→22:01)
[2020-08-01] MEDS: PANTOPRAZOLE 40 MG VIAL IV SCH ×2 (08:32→22:02)
[2020-08-01] MEDS: allopurinoL 300 MG TABLET PO SCH ×2 (08:33→21:38)
[2020-08-01] MEDS: SOTALOL 80 MG TABLET PO SCH ×2 (08:33→21:38)
[2020-08-01] MEDS: ZINC/COPPER/MANGANESE/SELENIUM 1 ML, MULTIVITAMIN INJ 10 ML in AMINO ACIDS/DEXT/LYTES 5... IV SCH (11:51)
[2020-08-01] MEDS: FERRIC GLUCONATE COMPLEX 125 MG in SODIUM CHLORIDE 0.9% 100 ML IV SCH (11:52)
[2020-08-01] MEDS: FAT EMULSION 20% 250 ML IV SCH (14:24)
[2020-08-01] MEDS: KETOROLAC 15 MG/1 ML VIAL IV PRN ×2 (16:41→21:56)
[2020-08-01] MEDS: ENOXAPARIN 60 MG/0.6 ML SYRINGE SUBCUT SCH (22:04)
[2020-08-02] MEDS: CEFEPIME 1,000 MG in SODIUM CHLORIDE 0.9% 100 ML IV SCH ×3 (01:11→18:35)
[2020-08-02] MEDS: INSULIN REGULAR 100 UNIT/ML SUBCUT SCH ×6 (02:13→21:08)
[2020-08-02] MEDS: LINEZOLID INJ 600 MG/300 ML PREMIX IV SCH ×2 (03:09→16:14)
[2020-08-02] MEDS: metroNIDAZOLE INJ 500 MG/100 ML PREMIX IV SCH ×4 (05:37→23:32)
[2020-08-02 05:59] LABS: Hematocrit 25.3 VOL% (35.7-47.0); Hemoglobin 7.8 GM/DL (12.0-16.0); Immature Granulocytes Absolute 0.08 #; Lymphocytes # 0.7 10*3/uL (1.4-4.0); Lymphocytes % 8.9 % (21.3-54.2); Mean Corpuscular HGB Conc 30.8 GM/DL (32-36); Mean Corpuscular Volume 95.1 FL (87-102); Mean Platelet Volume 11.4 FL (9.6-12.0); Monocytes % 5.1 % (1.7-12.7); NRBC # 0.02 10*3/uL; Platelet Count 108 T/CUMM (130-400); Red Blood Count 2.66 MC/CUMM (3.8-5.5); Red Cell Distribution Width 17.9 % (9.3-17.3); White Blood Count 7.9 T/CUMM (4-12)
[2020-08-02 06:19] LABS: Alanine Aminotransferase < 9 U/L (13-56); Albumin 1.6 G/DL (3.4-5.0); Alkaline Phosphatase 74 U/L (45-117); Aspartate Amino Transferase 24 U/L (0-37); Blood Urea Nitrogen 53 MG/DL (7-18); Calcium 7.7 MG/DL (8.5-10.1); Carbon Dioxide 25 MMOL/L (21-32); Estimated Glom Filtration Rate 36 ML/MIN; Glucose 166 MG/DL (74-106); Osmolality,Calculated 305.7 MOS/KG (273-304); Potassium 4.4 MMOL/L (3.5-5.1); Sodium 145 MMOL/L (136-145); Total Protein 4.5 G/DL (6.4-8.2)
[2020-08-02] MEDS: LEVALBUTEROL 1.25 MG/3 ML NEB RESP TX SCH ×2 (07:40→15:32)
[2020-08-02] MEDS: HYDROCORTISONE 100 MG VIAL IV SCH ×2 (10:06→21:18)
[2020-08-02] MEDS: PANTOPRAZOLE 40 MG VIAL IV SCH ×2 (10:07→21:16)
[2020-08-02] MEDS: FERRIC GLUCONATE COMPLEX 125 MG in SODIUM CHLORIDE 0.9% 100 ML IV SCH (10:08)
[2020-08-02] MEDS: SOTALOL 80 MG TABLET PO SCH ×2 (10:08→21:09)
[2020-08-02] MEDS: allopurinoL 300 MG TABLET PO SCH ×2 (10:09→21:08)
[2020-08-02] MEDS: FAT EMULSION 20% 250 ML IV SCH (14:53)
[2020-08-02] MEDS: ZINC/COPPER/MANGANESE/SELENIUM 1 ML, MULTIVITAMIN INJ 10 ML in AMINO ACIDS/DEXT/LYTES 5... IV SCH (14:58)
[2020-08-02] MEDS: ENOXAPARIN 60 MG/0.6 ML SYRINGE SUBCUT SCH (21:16)
[2020-08-02] MEDS: KETOROLAC 15 MG/1 ML VIAL IV PRN (23:32)
[2020-08-03] MEDS: INSULIN REGULAR 100 UNIT/ML SUBCUT SCH ×6 (00:01→20:34)
[2020-08-03] MEDS: LEVALBUTEROL 1.25 MG/3 ML NEB RESP TX SCH ×4 (00:22→23:46)
[2020-08-03] MEDS: CEFEPIME 1,000 MG in SODIUM CHLORIDE 0.9% 100 ML IV SCH ×3 (00:42→17:32)
[2020-08-03] MEDS: LINEZOLID INJ 600 MG/300 ML PREMIX IV SCH ×2 (03:34→15:08)
[2020-08-03] MEDS: metroNIDAZOLE INJ 500 MG/100 ML PREMIX IV SCH ×3 (04:56→18:39)
[2020-08-03] MEDS: HYDROCORTISONE 100 MG VIAL IV SCH ×2 (09:39→17:32)
[2020-08-03] MEDS: PANTOPRAZOLE 40 MG VIAL IV SCH ×2 (09:39→21:04)
[2020-08-03] MEDS: FERRIC GLUCONATE COMPLEX 125 MG in SODIUM CHLORIDE 0.9% 100 ML IV SCH (09:39)
[2020-08-03] MEDS: allopurinoL 300 MG TABLET PO SCH ×2 (10:25→20:50)
[2020-08-03] MEDS: SOTALOL 80 MG TABLET PO SCH ×2 (10:25→20:50)
[2020-08-03] MEDS: ZINC/COPPER/MANGANESE/SELENIUM 1 ML, MULTIVITAMIN INJ 10 ML in AMINO ACIDS/DEXT/LYTES 5... IV SCH (14:56)
[2020-08-03] MEDS: FAT EMULSION 20% 250 ML IV SCH (14:56)
[2020-08-03] MEDS: KETOROLAC 15 MG/1 ML VIAL IV PRN (15:08)
[2020-08-03] MEDS: ENOXAPARIN 60 MG/0.6 ML SYRINGE SUBCUT SCH (21:04)
[2020-08-04] MEDS: metroNIDAZOLE INJ 500 MG/100 ML PREMIX IV SCH (00:06)
[2020-08-04] MEDS: INSULIN REGULAR 100 UNIT/ML SUBCUT SCH ×6 (00:11→20:32)
[2020-08-04] MEDS: CEFEPIME 1,000 MG in SODIUM CHLORIDE 0.9% 100 ML IV SCH ×3 (01:08→18:32)
[2020-08-04] MEDS: LINEZOLID INJ 600 MG/300 ML PREMIX IV SCH ×2 (02:47→15:35)
[2020-08-04] MEDS: LEVALBUTEROL 1.25 MG/3 ML NEB RESP TX SCH ×3 (07:20→22:58)
[2020-08-04] MEDS: PANTOPRAZOLE 40 MG VIAL IV SCH ×2 (09:21→20:32)
[2020-08-04] MEDS: SOTALOL 80 MG TABLET PO SCH ×2 (10:23→20:19)
[2020-08-04] MEDS: allopurinoL 300 MG TABLET PO SCH ×2 (10:32→20:19)
[2020-08-04] MEDS: FERRIC GLUCONATE COMPLEX 125 MG in SODIUM CHLORIDE 0.9% 100 ML IV SCH (10:52)
[2020-08-04] MEDS ORDERED: ASCORBIC ACID 500 MG/1 ML VIAL IV ONE (13:51)
[2020-08-04] MEDS ORDERED: THIAMINE 200 MG/2 ML VIAL IV SCH (14:00)
[2020-08-04] MEDS ORDERED: FOLIC ACID INJ 1 MG in SYRINGE 1 EACH IV SCH (15:00)
[2020-08-04] MEDS: ZINC/COPPER/MANGANESE/SELENIUM 1 ML, MULTIVITAMIN INJ 10 ML in AMINO ACIDS/DEXT/LYTES 5... IV SCH (15:35)
[2020-08-04] MEDS: FAT EMULSION 20% 250 ML IV SCH (15:35)
[2020-08-04] MEDS: HYDROCORTISONE 100 MG VIAL IV SCH (15:36)
[2020-08-04] MEDS ORDERED: KETOROLAC 15 MG/1 ML VIAL IV ONE (18:04)
[2020-08-04] MEDS ORDERED: MEPERIDINE 50 MG/1 ML VIAL IV PRN (18:21)
[2020-08-04] MEDS: ENOXAPARIN 60 MG/0.6 ML SYRINGE SUBCUT SCH (20:32)
[2020-08-04 21:18] VITALS: BP 118/78
== END 2020-08-04 21:09 | disposition expired | DRG 329 ==
LOC: N.ED 16:13 → N.EDINP 20:38 → SUATTDRO 20:38 → N.3E 22:00 → N.ICU 07-22 15:34 → N.5E 07-30 10:34
PROVIDERS: ADMIT Internal Medicine; ATTEND Family Medicine